=== PATIENT | male | born 1990 | race Caucasian/White ===

== ENCOUNTER 2018-07-18 19:07 | Inpatient (IN) | payer OTHER, SELFPAY ==
[2018-07-18 19:09] VITALS: BP 123/60; PULSE 103; RESP 15; TEMP 39.3; BMI 31.1
--- NOTE | 2018-07-18 19:25 | ED.VISSUMM ---
- ER Visit Summary Date of Service: 07/18/18 Chief Complaint: Fever left arm pain. History of Present Illness: The patient is a 28 M with LEIA woke up with a fever, his left hand is red and he is noticing lymphangitic streaking. Denies any chest pain shortness of breath. Denies cough. No urinary symptoms. No abdominal pain. Physical Examination: He appears in some distress Moist mucous membranes, he has an obvious nasal deformity. He has a deep voice No C-spine tenderness supple neck. Regular rate and rhythm without any obvious murmurs Clear lungs bilaterally speaking in full sentences without any obvious respiratory distress Abdomen soft and nontender no guarding or rebound There is dorsum of the hand erythema and some edema without any obvious abscess. There is lymphangitic streaking up to close to the axilla. His fifth digit shows an auto amputation, he has multiple areas of very dry skin throughout his hand. Alert oriented ?3 with no gross focal deficit Emergency Department Course and Treatment: Patient was started on IV clindamycin, blood cultures were drawn. Patient will need admission for IV antibiotics. At this time there are no signs or symptoms of necrotizing fasciitis or deep abscess. Disposition: Admit to the hospital in guarded condition Impression: Left hand cellulitis with lymphangitic streaking This note was generated with [employer] dictation software. It may contain incorrect words, spelling, and punctuation that were not noted in review of the chart prior to signing ED Disposition - Plan for ED Patient: Chief Complaint: Fever Referrals: Salty Watts DO [Primary Care Provider] -
--- NOTE | 2018-07-18 19:40 | RAD_ITS ---
STUDY: X-RAY - LEFT HAND REASON FOR EXAM: Male, 28 years old. The third digit pain TECHNIQUE: 3 view(s) of the hand. COMPARISON: None. FINDINGS: There is amputation of the distal phalanx of the left fifth finger. There is no evidence of acute fracture or dislocation. There are no significant degenerative changes. There are no radiodense foreign bodies. RAD/Hand Min 3 Views IMPRESSION: Amputation of the distal phalanx of the left fifth finger. No acute fracture or dislocation. Electronically Signed: Juan F Alan, at 20:11 EST Tel , Service support ,
[2018-07-18 19:49] LABS: Basophil# 0.01 X10^3/uL; Basophil% 0.1 % (0-1); Hemoglobin 12.4 g/dl (13.0-16.5); Lymphocyte % 14.9 % (19-41); Mean Corp Hgb Conc 33.5 g/gl (32-36); Mean Corpuscular Hgb 30.7 pg (27.0-32.0); Mean Corpuscular Volume 91.6 fL (80-94); Mean Platelet Vol. 8.7 fl (6.2-12.0); Monocyte# 0.79 X10^3/uL; Monocyte% 6.2 % (0-10); Neutrophil # 10.02 X10^3/uL (2.7-7.7); Neutrophil % 78.7 % (47-70); POSITIVE COUNT NO; POSITIVE DIFFERENTIAL NO; POSITIVE MORPHOLOGY NO; Platelet Count 161 K/mm3 (150-450); RBC Distribution Width CV 13.5 % (11.6-14.6); RBC Distribution Width SD 45.2 fl (35.1-43.9); Red Blood Count 4.04 M/mm3 (4.6-6.2); White Blood Count 12.7 K/mm3 (4.4-11.0)
[2018-07-18 19:54] LABS: Erythrocyte Sedimentation Rate 23 mm/hr (0-15)
[2018-07-18 20:17] LABS: Anion Gap 8 (5-15); BUN 15 mg/dL (7-18); BUN/Creat Ratio 19.1 RATIO (10-20); Calcium,Total 8.5 mg/dL (8.5-10.1); Chloride 100 mmol/L (98-107); Creatinine, Serum 0.79 mg/dL (0.70-1.30); EST Glomerular Filtration Rate 126 mL/min (>60); Est Glom Filt Rate - Afr Amer 152 mL/min (>60); Estimated Creatinine Clearance 113.04 ml/min; Glucose 91 mg/dL (74-106); Lactic Acid 0.9 mmol/L (0.4-2.0); Potassium 4.1 mmol/L (3.5-5.1); Sodium Level 135 mmol/L (136-145)
--- NOTE | 2018-07-18 20:34 | PCM.HP.STD ---
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 His symptoms are more prominent on the last 2 digits of the fingers of his left hand with extension to the entire left upper extremity. Associated with his symptoms is a fever of 104 while at home. Further he reported chills. Patient who is Shane tried ibuprofen and some natural treatment but noticed a progression of his symptoms. At emergency department patient was found to have temperatures of around 103; elevated white count, elevated ESR and elevated CRP. At emergency department patient received clindamycin. X-ray of his left hand was unremarkable. Past Medical History Past Medical History (Chronic Problems): Chronic Problems LEIA syndrome (Chronic) Tobacco abuse (Chronic) Allergies No Known Allergies Allergy (Verified 07/18/18 19:14) Home Medications: Ambulatory Orders Medication Instructions Recorded Natural Herbs 07/18/18 Surgical History: appendectomy, - - To brain aneurysmal clips Lives: Spouse/ Significant Other Smoking Status: Current every day smoker Tobacco Use: Chew Alcohol: Occasional - *Family History Maternal Family History: Family History (Last Updated 07/19/18 @ 00:41 by Titi Brady MD) Brother LEIA syndrome Brother LEIA syndrome Review of Systems Constitutional: Reports: Chills, Fever. Denies: Weight Change HEENT: Denies: Head Aches, Sinus Congestion, Sinus Drainage Cardiovascular: Denies: Chest Pain, Palpitations Respiratory: Denies: Cough, Shortness of breath at rest, Sputum production Gastrointestinal: Denies: Abdominal Pain, Nausea, Vomiting Genitourinary: Denies: Dysuria Musculoskeletal: Reports: Arm Pain - left. Denies: Joint Pain, Joint Tenderness Skin: Reports: Skin Changes - erythema and swelling of left upper extremities. Denies: Rash, Wounds Neurological: Denies: Numbness, Tingling, Focal weakness Psychiatric: Denies: Anxiety, Depression, Homicidal Ideations, Suicidal Ideations Hematologic/ Lymphatic: Denies: Easy Bruising, Easy Bleeding VTE Information - Inpt Only VTE Present on Admission: No VTE Mechan Device Prophylaxis: SCD's, None VTE Pharm Prophylaxis ordered?: No Patient Problems: Active and Suspected Problems Sepsis due to cellulitis (Acute) - Physical Exam General: Alert, Oriented x3, Cooperative HEENT: Atraumatic, PERRLA, EOMI, Normocephalic, - - Eschar on the tip of nose Neck: Supple, No JVD, Negative Carotid Bruits Lungs: Clear to auscultation, Normal air movement Cardiovascular: Regular rate, No murmurs Abdomen: Bowel Sounds Present, Soft, Non Tender Extremities: Capillary Refill Less than 3 Seconds Skin: - - Swelling and redness of entire right upper extremities more pronounced at dorsum of left distal fingers and with lymphagitic streaking at ventral side of left upper extremities. No distal phalangx of left 5th digit but with small nail at same digit. Musculoskeletal: No Tenderness to Palpation of Joints or Extremities Neurological: Cranial nerves II-XII grossly intact Psych/Mental Status: Normal Affect, Appropriate Vital Signs Temp Pulse Resp BP 102.8 F H 103 H 15 123/60 H 07/18/18 19:09 07/18/18 19:09 07/18/18 19:09 07/18/18 19:09 Weight: 79.7 kg Body Mass Index (BMI) 31.1 Laboratory Tests Past 24 Hrs 07/18/18 07/18/18 07/18/18 19:37 19:37 19:37 WBC 12.7 H RBC 4.04 L Hgb 12.4 L Hct 37.0 L MCV 91.6 MCH 30.7 MCHC 33.5 RDW 13.5 RDW Differential 45.2 H Plt Count 161 MPV 8.7 Immature Gran % (Auto) 0.100 Neut % (Auto) 78.7 H Lymph % (Auto) 14.9 L [place] % (Auto) 6.2 Eos % (Auto) 0.0 Baso % (Auto) 0.1 Absolute Neuts (auto) 10.0 H Absolute Lymphs (auto) 1.90 Total Counted Not Reportable ESR 23 H Sodium 135 L Potassium 4.1 Chloride 100 Carbon Dioxide 27.0 Anion Gap 8 BUN 15 Creatinine 0.79 Estim Creat Clear Calc 113.04 Est GFR (MDRD) Af Amer 152 Est GFR (MDRD) Non-Af 126 BUN/Creatinine Ratio 19.1 Glucose 91 Lactic Acid 0.9 Calcium 8.5 C-React Prot Ext Range 16.60 H Assessment/Plan All Active Problems Sepsis due to cellulitis (Acute) The patient is a 28 year old M with a significant history of tobacco abuse; 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 Sepsis secondary to cellulitis of left upper extremities. Patient with Sirs criteria of white counts of more than 12,000 and with fever more than 100.4. Source of infection is left upper extremities. Independent review of x-ray of left did not show any acute pathology. Lactic acid was unremarkable. Received IV clindamycin at emergency department. Because of sepsis patient was transitioned to vancomycin and cefazolin 2 g every 8 hours. Patient received vancomycin loading dose of 2000 mg. Pharmacy to dose vancomycin. Tylenol as needed for fever Morphine and oxycodone as needed for pain. Bowel protocol in the setting of receiving narcotics. Phenergan as needed for nausea NSS IV fluids in the setting of fever. Trend CBC and BMP. Tobacco abuse Patient is a former smoker but now he chews tobacco Counseled Nicotine patch prescribed. DVT prophylaxis Low risk SCD prescribed. Code Visit Inpatient E&M: 75303 Init Hosp L3
[2018-07-18] MEDS: Ondansetron 4 MG/2 ML Vial IV (20:53)
[2018-07-18] MEDS: Morphine 2 MG/ML Syringe IV (20:53)
[2018-07-18 20:58] VITALS: BP 132/75; PULSE 72; RESP 18; TEMP 39.6; O2SAT 95
[2018-07-18 22:09] VITALS: BP 118/54; PULSE 108; RESP 20; TEMP 39.5; O2SAT 97
[2018-07-18] MEDS: oxyCODONE 5 MG Tablet PO (22:37)
[2018-07-18] MEDS: Mag Hydrox/Al Hydrox/Simeth 30 ML UDC PO (22:37)
[2018-07-18] MEDS: Senna/Docusate Sodium 1 Tablet PO (22:38)
[2018-07-18 23:11] VITALS: O2SAT 97
--- NOTE | 2018-07-18 23:31 | NURSING ---
ice packs to axilla & groin, cool cloth to forehead. encouraged po fluids
[2018-07-18] MEDS: Acetaminophen 325 MG Tablet 650 MG PO (23:36)
--- NOTE | 2018-07-18 23:41 | PCM.RX.CS ---
Consult Pharmacy has been consulted to manage selected antiobiotic: Vancomycin Type of Consult: New start Suspected Infection: Skin/Soft tissue Prior Doses of Antibiotics Received/Current Regimen: Medications Vancomycin HCl (Vancomycin) 1,000 mg in 200 mls @ 200 mls/hr IV Q8H SHIV Vancomycin HCl 2,000 mg/ (Sodium Chloride) 540 mls @ 250 mls/hr IV X1 ONE Stop: 07/19/18 00:39 Last Admin: 07/18/18 22:43 Dose: 250 mls/hr Labs: Sodium 135 mmol/L (136-145) L 07/18/18 19:37 Potassium 4.1 mmol/L (3.5-5.1) 07/18/18 19:37 Chloride 100 mmol/L (98-107) 07/18/18 19:37 Carbon Dioxide 27.0 mmol/L (21.0-32.0) 07/18/18 19:37 Anion Gap 8 (5-15) 07/18/18 19:37 BUN 15 mg/dL (7-18) 07/18/18 19:37 Creatinine 0.79 mg/dL (0.70-1.30) 07/18/18 19:37 Est GFR (MDRD) Af Amer 152 mL/min (>60) 07/18/18 19:37 Est GFR (MDRD) Non-Af 126 mL/min (>60) 07/18/18 19:37 BUN/Creatinine Ratio 19.1 RATIO (10-20) 07/18/18 19:37 Glucose 91 mg/dL (74-106) 07/18/18 19:37 Weight used for dosin.9 kg Estimated Creatinine Clearance: 113 Goal Trough: 15-20 mcg/mL Pharmacy Plan for Drug Dosing: Pharmacy Service will continue to monitor and adjust dosing as required. Follow-Up Labs: Trough Vancomycin Labs to be done on [date and time ordered]: 07/19/18 @9519
[2018-07-19] VITALS (13 sets, daily range): BP systolic 96–122; BP diastolic 53–68; PULSE 78–115; RESP 14–20; TEMP 36.8–40.2; O2SAT 97–100
[2018-07-19] MEDS: 0.9% Normal Saline 1,000 ML 75 ML IV (01:20)
[2018-07-19] MEDS: Cefazolin 2 GM in 0.9% Normal Saline 100 ML IV ×2 (01:21→05:57)
[2018-07-19] MEDS: oxyCODONE 5 MG Tablet PO ×2 (03:46→17:23)
[2018-07-19] MEDS: Ibuprofen 400 MG Tablet PO ×3 (04:50→20:46)
[2018-07-19] MEDS: Acetaminophen 325 MG Tablet 650 MG PO ×2 (05:57→19:38)
[2018-07-19 06:02] LABS: Absolute Lymphocyte Count 1.21 X10^3/ul (0.83-4.51); Absolute Neutrophil Count 8.4 X10^3/uL (2.0-7.7); Basophil# 0.01 X10^3/uL; Basophil% 0.1 % (0-1); Hematocrit 32.5 % (40-54); Hemoglobin 10.9 g/dl (13.0-16.5); Lymphocyte # 1.21 X10^3/ul (4.0); Lymphocyte % 12.1 % (19-41); Mean Corp Hgb Conc 33.5 g/gl (32-36); Mean Corpuscular Hgb 30.9 pg (27.0-32.0); Mean Corpuscular Volume 92.1 fL (80-94); Mean Platelet Vol. 8.8 fl (6.2-12.0); Monocyte# 0.35 X10^3/uL; Monocyte% 3.5 % (0-10); Neutrophil # 8.42 X10^3/uL (2.7-7.7); Neutrophil % 84.2 % (47-70); Platelet Count 149 K/mm3 (150-450); RBC Distribution Width CV 13.6 % (11.6-14.6); RBC Distribution Width SD 45.3 fl (35.1-43.9); Red Blood Count 3.53 M/mm3 (4.6-6.2)
[2018-07-19 06:04] LABS: POSITIVE COUNT NO; POSITIVE DIFFERENTIAL NO; POSITIVE MORPHOLOGY NO
[2018-07-19 06:31] LABS: Anion Gap 11 (5-15); BUN 10 mg/dL (7-18); BUN/Creat Ratio 12.4 RATIO (10-20); Calcium,Total 7.8 mg/dL (8.5-10.1); Chloride 99 mmol/L (98-107); Creatinine, Serum 0.81 mg/dL (0.70-1.30); EST Glomerular Filtration Rate 122 mL/min (>60); Est Glom Filt Rate - Afr Amer 148 mL/min (>60); Estimated Creatinine Clearance 110.25 ml/min; Glucose 125 mg/dL (74-106); Potassium 3.4 mmol/L (3.5-5.1); Sodium Level 134 mmol/L (136-145)
[2018-07-19] MEDS: Vancomycin IV 1,000 MG/200 ML BAG 200 MG IV (06:53)
--- NOTE | 2018-07-19 09:05 | PN_ITS ---
Patient Problems: Active and Suspected Problems Sepsis due to cellulitis (Acute) Subjective: The patient mother says patient has LEIA syndrome and as a result patient was short stature then gained weight and height after age of 19. He also had brain aneurysm subsequent 2 aneurysm clips. He was admitted with left upper extremity swelling, pain, proximal extension from medial 2 digits of left hand and left axillary lymphadenopathy and fever. Vitals/I&O's: Vital Signs Temp Pulse Resp BP Pulse Ox 98.3 F 83 14 96/53 L 97 07/19/18 07:49 07/19/18 07:49 07/19/18 08:43 07/19/18 07:49 07/19/18 07:49 Oxygen Delivery Method Room Air Weight: 169 lb 8.568 oz Body Mass Index (BMI) 30.0 Intake and Output for Last 24 Hours 07/17/18 07/18/18 07/19/18 23:59 23:59 23:59 Intake Total 200 / 200 3885 / 3885 Output Total 680 / 680 1800 / 1800 Balance -480 / -480 2084 / 2084 General: Alert, Oriented x3, Cooperative HEENT: Atraumatic, PERRLA, EOMI, Normocephalic Neck: Supple, No JVD, Negative Carotid Bruits Lungs: Clear to auscultation, Normal air movement, No rhonchi, No wheeze Cardiovascular: Regular rate, No murmurs Abdomen: Bowel Sounds Present, Soft, Non Tender Extremities: Capillary Refill Less than 3 Seconds, Edema - Left upper extremity edema., Tenderness - Of left upper extremity along the medial aspect. Skin: Rash Present - Erythematous rash present over left upper extremity involving left axilla, gradually improving Musculoskeletal: Tenderness Lymphatic: - - Left axillary lymphadenopathy Neurological: Cranial nerves II-XII grossly intact, Deep Tendon Reflexes 2+/4 and Symmetrical, Neuro grossly intact Psych/Mental Status: Normal Affect, Appropriate Laboratory Results 07/18/18 19:37: WBC 12.7 H, RBC 4.04 L, Hgb 12.4 L, Hct 37.0 L, MCV 91.6, MCH 30.7, MCHC 33.5, RDW 13.5, RDW Differential 45.2 H, Plt Count 161, MPV 8.7, Immature Gran % (Auto) 0.100, Neut % (Auto) 78.7 H, Lymph % (Auto) 14.9 L, [place] % (Auto) 6.2, Eos % (Auto) 0.0, Baso % (Auto) 0.1, Absolute Neuts (auto) 10.0 H, Absolute Lymphs (auto) 1.90, Total Counted Not Reportable, ESR 23 H 07/18/18 19:37: Sodium 135 L, Potassium 4.1, Chloride 100, Carbon Dioxide 27.0, Anion Gap 8, BUN 15, Creatinine 0.79, Estim Creat Clear Calc 113.04, Est GFR (MDRD) Af Amer 152, Est GFR (MDRD) Non-Af 126, BUN/Creatinine Ratio 19.1, Glucose 91, Calcium 8.5, C-React Prot Ext Range 16.60 H 07/18/18 19:37: Lactic Acid 0.9 07/19/18 05:25: WBC 10.0, RBC 3.53 L, Hgb 10.9 L, Hct 32.5 L, MCV 92.1, MCH 30.9, MCHC 33.5, RDW 13.6, RDW Differential 45.3 H, Plt Count 149 L, MPV 8.8, Immature Gran % (Auto) 0.100, Neut % (Auto) 84.2 H, Lymph % (Auto) 12.1 L, [place] % (Auto) 3.5, Eos % (Auto) 0.0, Baso % (Auto) 0.1, Absolute Neuts (auto) 8.4 H, Absolute Lymphs (auto) 1.21, Total Counted Not Reportable 07/19/18 05:25: Sodium 134 L, Potassium 3.4 L, Chloride 99, Carbon Dioxide 24.0, Anion Gap 11, BUN 10, Creatinine 0.81, Estim Creat Clear Calc 110.25, Est GFR (MDRD) Af Amer 148, Est GFR (MDRD) Non-Af 122, BUN/Creatinine Ratio 12.4, Glucose 125 H, Calcium 7.8 L Current Medications Acetaminophen (Tylenol) 650 mg PO Q6H PRN PRN PRN Reason: pain/fever Last Admin: 07/19/18 05:57 Dose: 650 mg Al Hydroxide/Mg Hydroxide (Mylanta Ii) 30 ml PO Q6H PRN PRN PRN Reason: Gastric burning Last Admin: 07/18/18 22:37 Dose: 30 ml Dextrose (D50w Syringe) 0 gm IV X1 PRN; Protocol PRN Reason: Hypoglycemia Glucagon () 1 mg IM .X1 PRN PRN Reason: Hypoglycemia Cefazolin Sodium 2 gm/ Sodium (Chloride) 110 mls @ 150 mls/hr IV Q8 [facility] Last Admin: 07/19/18 05:57 Dose: 150 mls/hr Vancomycin IV Pharmacy to Dose (2,000 ea/ Sodium Chloride) 500 mls @ 250 mls/hr IV Q12 PRN; Protocol Vancomycin HCl (Vancomycin) 1,000 mg in 200 mls @ 200 mls/hr IV Q8H [facility] Last Admin: 07/19/18 06:53 Dose: 200 mls/hr Sodium Chloride () 1,000 mls @ 100 mls/hr IV .Q10H [facility] Stop: 07/19/18 18:14 Ibuprofen (Motrin) 400 mg PO Q6H PRN PRN PRN Reason: Mild Pain (1-310)/TEMP Magnesium Hydroxide (Milk Of Magnesia) 30 ml PO DAILY PRN PRN PRN Reason: Constipation Morphine Sulfate () 1 - 2 mg IV Q4H PRN PRN PRN Reason: Moderate Pain (pain scale 4-5) Nicotine (Nicoderm Cq (Pbkc)) 21 mg TRANSDERM. DAILY [facility] Last Admin: 07/18/18 22:38 Dose: 21 mg Nutritional Formula (Lactose Free) (Ensure Enlive) 120 ml PO 4X/DAY [facility] Ondansetron HCl (Zofran) 4 mg IV Q8H PRN PRN PRN Reason: NAUSEA Oxycodone HCl (Oxyir) 5 mg PO Q4H PRN PRN PRN Reason: Moderate Pain (pain scale 4-5) Last Admin: 07/19/18 03:46 Dose: 5 mg Promethazine HCl (Phenergan) 12.5 mg IV Q6H PRN PRN PRN Reason: NAUSEA/VOMITING Senna/Docusate Sodium (Senokot-S, Elena-Colace) 1 tablet PO BID [facility] Last Admin: 07/18/18 22:38 Dose: 1 tablet Sodium Chloride () 5 - 30 ml IV UD PRN PRN Reason: SALINE FLUSH Medical Necessity - Tobacco Use Smoking Status: Current every day smoker Tobacco Use: Chew Assessment/Plan All Active Problems Sepsis due to cellulitis (Acute) The patient is a 28 year old M with a significant history of tobacco abuse; 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 1. SIRS with sepsis secondary to left upper extremity cellulitis with left axillary lymphadenopathy: Left axillary lymphadenopathy is improving. Patient is on IV Unasyn. Initially was treated with IV vancomycin and clindamycin. Blood culture negative for 1 day. MRSA nasal screen negative. Her mother further said he has acral cyanosis or tip of ears, nose getting or probable old cold; probably may have Reynaud's phenomena. 2. PAD of lower extremities: As per mother he has some peripheral artery disease of lower extremities on arterial Doppler result is not available. Patient did not had angiogram or stenting. 3. Tobacco use: Patient was ex-smoker but now uses chewing tobacco. 4. DVT prophylaxis: Low risk. Early ambulation encouraged Clinical Impression(s) from Imaging Studies Hand X-Ray 07/18/18 19:40 IMPRESSION: Amputation of the distal phalanx of the left fifth finger. No acute fracture or dislocation. Laboratory Results 07/19/18 05:25: WBC 10.0, RBC 3.53 L, Hgb 10.9 L, Hct 32.5 L, MCV 92.1, MCH 30.9, MCHC 33.5, RDW 13.6, RDW Differential 45.3 H, Plt Count 149 L, MPV 8.8, Immature Gran % (Auto) 0.100, Neut % (Auto) 84.2 H, Lymph % (Auto) 12.1 L, [place] % (Auto) 3.5, Eos % (Auto) 0.0, Baso % (Auto) 0.1, Absolute Neuts (auto) 8.4 H, Absolute Lymphs (auto) 1.21, Total Counted Not Reportable 07/19/18 05:25: Sodium 134 L, Potassium 3.4 L, Chloride 99, Carbon Dioxide 24.0, Anion Gap 11, BUN 10, Creatinine 0.81, Estim Creat Clear Calc 110.25, Est GFR (MDRD) Af Amer 148, Est GFR (MDRD) Non-Af 122, BUN/Creatinine Ratio 12.4, Glucose 125 H, Calcium 7.8 L 07/19/18 09:00: MRSA (PCR) Negative 07/19/18 11:43: POC Glucose 97 Code Visit Inpatient E&M: 19556 Subs Hosp L2
[2018-07-19] MEDS: Senna/Docusate Sodium 1 Tablet PO ×2 (09:18→22:18)
[2018-07-19 11:50] LABS: M R Staph aureus DNA By PCR Negative (Negative); Probe Check PASS; Specimen Processing Control PASS
[2018-07-19 12:01] LABS: Bedside Glucose 97 mg/dL (70-110)
--- NOTE | 2018-07-19 12:10 | CASEMGMT ---
FRED MARTINEZ INITIAL ASSESSMENT D/C PLAN: Home Face to Face with patient for initial transition planning/care coordination assessment. FRED MARTINEZ introduced self and role at [facility]. Pt resting in bed, awake/alert/oriented. Several family members in room. Pt agreeable to assessment and answering questions with visitors present. Care providers, pharmacy, and demographics verified. PCP: Salty Watts Preferred Pharmacy: [facility], [facility] Retail on day of discharge only. Insurance: [employer] Aid Prescription Benefit: No Living Will/HPOA: Does not have either. [facility] is interested in information and talking to . Given AD information packet and Dung notified. LNOK: Living Arrangements: Lives with and child. Transportation: Hires drivers. DME: Denies using any DME and denies needs. HHC/SNF: Denies needs and no needs identified. Pt wishes to return home. [facility] does not have a phone but if someone would need to contact him, they can reach him on his work number, which is Hardeep Rawls's number: [phone]. [facility] it is okay to leave message at this number for him to return call. CM to follow for any further discharge planning needs that may arise. Lexi BOWMAN RN, CM
[2018-07-19] MEDS: 0.9% Normal Saline 1,000 ML 100 ML IV (15:01)
--- NOTE | 2018-07-19 15:09 | CHAPLAIN ---
Type of Pastoral Visit _x__ Initial Visit ___ Follow-up Visit ___ On-call Visit ___ General Patient Visit ___ Spiritual Assessment ___ Family Conference ___ Bereavement ___ Rapid Response ___ Code Blue ___ Other (describe below) Pastoral Care Referral From _x__ Patient ___ Family ___ Nurse ___ Physician ___ System Development Engineer ___ Diamond Picker ___ Other (describe below) Sacrament/Intervention _x__ Active listening ___ Anointing ___ Presybeterian ___ Bereavement ___ Communion ___ Cherrie exploration ___ ___ Life review _x__ Prayer ___ Reconciliation ___ Sacrament of Sick _x__ Supportive presence ___ Wedding ___ Other (describe below) Pastoral Comments there were a few family members with patient; pt spoke of his illness; pt said that family is his support; pt accepted prayer
--- NOTE | 2018-07-19 15:33 | CASEMGMT ---
Addendum entered by Anahy Webber 07/19/18 15:41: SW provided pt with advanced directives documents. Original Note: Social Work Note SW received referral for Advanced Directives. SW met with pt. Pt has guest present. Pt gave this worker permission to speak to him in front of guest. SW explained advanced directives to pt. Pt states that he wishes to review documents and complete the documents at a later time. SW explained that pt may take the documents home and can complete them and they will need notarized then. Pt states understanding. SW provided pt with executive secretary social welfare information card in the event pt wants assistance in completing documents once he discharges from hospital. Anahy Webber TAG AND LABEL CUTTER, CUSTOMER COMPLAINT SERVICE SUPERVISOR
[2018-07-19 17:11] LABS: Bedside Glucose 76 mg/dL (70-110)
[2018-07-19] MEDS: Ondansetron 4 MG/2 ML Vial IV (19:46)
[2018-07-19 22:30] LABS: Bedside Glucose 109 mg/dL (70-110)
[2018-07-19 23:53] LABS: Vancomycin, Trough Level 3.8 ug/mL (5.0-15.0)
[2018-07-20] VITALS (7 sets, daily range): BP systolic 99–115; BP diastolic 56–64; PULSE 80–96; RESP 16–18; TEMP 37.2–39; O2SAT 96–99
[2018-07-20] MEDS: Acetaminophen 325 MG Tablet 650 MG PO ×2 (01:31→20:31)
[2018-07-20] MEDS: Ibuprofen 400 MG Tablet PO (05:49)
[2018-07-20 06:51] LABS: Bedside Glucose 109 mg/dL (70-110)
[2018-07-20 07:08] LABS: Anion Gap 6 (5-15); BUN 8 mg/dL (7-18); BUN/Creat Ratio 11.1 RATIO (10-20); Calcium,Total 8.1 mg/dL (8.5-10.1); Chloride 105 mmol/L (98-107); Creatinine, Serum 0.72 mg/dL (0.70-1.30); EST Glomerular Filtration Rate 139 mL/min (>60); Est Glom Filt Rate - Afr Amer 168 mL/min (>60); Estimated Creatinine Clearance 124.03 ml/min; Glucose 84 mg/dL (74-106); Sodium Level 138 mmol/L (136-145)
--- NOTE | 2018-07-20 09:23 | CT_ITS ---
STUDY: CT SCAN UPPER EXTREMITY LEFT REASON FOR EXAM: Male, 28 years old. Swelling and redness of the left arm. RADIATION DOSAGE (If Supplied By Facility): CTDIvol = ( 25.04 ) mGy, DLP = ( 2033.89 ) mGycm. Individualized dose optimization techniques were used for this CT.? TECHNIQUE: Multiple axial tomographic images of the left upper extremity to the level of the digits was obtained following IV contrast administration. Coronal and sagittal reconstruction was obtained as well. COMPARISON: None. FINDINGS: There is evidence of skin thickening with increased markings in the underlying subcutaneous tissues along the medial aspect of the left arm. This extends to the region of the elbow joint. There is also evidence of diffuse skin thickening and subcutaneous edema along the medial aspect of the forearm. No focal abscess is seen. The patient is status post amputation of the distal phalanx of the left finger. CT/Extremity Upper WITH Contrast IMPRESSION: Skin thickening and subcutaneous edema overlying the medial aspect of the left upper extremity as described. No focal fluid collection or abscess is seen. Electronically Signed: Cruzito Nathan MD at 11:09 EST Tel [phone], Service support ,
[2018-07-20 09:39] LABS: Absolute Lymphocyte Count 2.07 X10^3/ul (0.83-4.51); Absolute Neutrophil Count 6.7 X10^3/uL (2.0-7.7); Basophil# 0.01 X10^3/uL; Basophil% 0.1 % (0-1); Hematocrit 36.1 % (40-54); Hemoglobin 11.7 g/dl (13.0-16.5); Lymphocyte # 2.07 X10^3/ul (4.0); Lymphocyte % 21.3 % (19-41); Mean Corp Hgb Conc 32.4 g/gl (32-36); Mean Corpuscular Hgb 30.9 pg (27.0-32.0); Mean Corpuscular Volume 95.3 fL (80-94); Mean Platelet Vol. 9.1 fl (6.2-12.0); Monocyte# 0.91 X10^3/uL; Monocyte% 9.4 % (0-10); Neutrophil % 69.1 % (47-70); POSITIVE COUNT NO; POSITIVE DIFFERENTIAL NO; POSITIVE MORPHOLOGY NO; Platelet Count 139 K/mm3 (150-450); RBC Distribution Width CV 14.3 % (11.6-14.6); Red Blood Count 3.79 M/mm3 (4.6-6.2); White Blood Count 9.7 K/mm3 (4.4-11.0)
--- NOTE | 2018-07-20 09:58 | NURSING ---
Dr Monroe asked this nurse to see patient for redness to the left hand and left arm and for pus to the middle finger. there is no current drainage noted. no open areas to culture. patient states he always has swelling to the hand and will often times not be able to move his fingers well d/t the edema. pt denies injuring his hand. pt states that the redness and edema have greatly improved already. pt does have scattered scabbed areas to his face, nose, arms, and hands. family present at bedside. pt getting ready to go down for a CT scan of the left hand.
[2018-07-20] MEDS: oxyCODONE 5 MG Tablet PO (10:59)
[2018-07-20 11:00] LABS: Bedside Glucose 118 mg/dL (70-110)
[2018-07-20] MEDS: 0.9% NaCl Peripheral Flush Adult/Peds IV (11:02)
--- NOTE | 2018-07-20 14:46 | PN_ITS ---
Patient Problems: Active and Suspected Problems Sepsis due to cellulitis (Acute) Subjective: Patient had fever yesterday 103.1 Fahrenheit, 102.2 Fahrenheit but afebrile in the morning. Associated tachycardia. 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 Vitals/I&O's: Vital Signs Temp Pulse Resp BP Pulse Ox 98.9 F 80 16 99/56 L 98 07/20/18 11:47 07/20/18 11:47 07/20/18 11:47 07/20/18 05:47 07/20/18 11:47 Oxygen Delivery Method Room Air Weight: 169 lb 8.568 oz Body Mass Index (BMI) 30.0 Intake and Output for Last 24 Hours 07/18/18 07/19/18 07/20/18 23:59 23:59 23:59 Intake Total 200 / 200 7214 / 7214 590 / 590 Output Total 680 / 680 4980 / 4980 550 / 550 Balance -480 / -480 2234 / 2234 40 / 40 General: Alert, Oriented x3, Cooperative HEENT: Atraumatic, PERRLA, EOMI, Normocephalic Neck: Supple, No JVD, Negative Carotid Bruits Lungs: Clear to auscultation, Normal air movement Cardiovascular: Regular rate, No murmurs Abdomen: Bowel Sounds Present, Soft, Non Tender Extremities: No edema, Capillary Refill Less than 3 Seconds Skin: Rash Present - Erythematous rash over left upper extremity and axilla. Musculoskeletal: No Tenderness to Palpation of Joints or Extremities, Tenderness - Of left upper extremity along the medial aspect with associated induration and swelling Lymphatic: - - Left axillary lymphadenopathy Neurological: Cranial nerves II-XII grossly intact, Deep Tendon Reflexes 2+/4 and Symmetrical, Neuro grossly intact, Motor Exam 5/5 strength throughout Psych/Mental Status: Normal Affect, Appropriate Laboratory Results 07/19/18 17:00: POC Glucose 76 07/19/18 22:16: POC Glucose 109 07/19/18 22:30: Vancomycin Trough 3.8 L 07/20/18 05:20: Sodium 138, Potassium 4.0, Chloride 105, Carbon Dioxide 27.0, Anion Gap 6, BUN 8, Creatinine 0.72, Estim Creat Clear Calc 124.03, Est GFR (MDRD) Af Amer 168, Est GFR (MDRD) Non-Af 139, BUN/Creatinine Ratio 11.1, Glucose 84, Calcium 8.1 L 07/20/18 06:30: WBC 9.7, RBC 3.79 L, Hgb 11.7 L, Hct 36.1 L, MCV 95.3 H, MCH 30.9, MCHC 32.4, RDW 14.3, RDW Differential 49.0 H, Plt Count 139 L, MPV 9.1, Immature Gran % (Auto) 0.100, Neut % (Auto) 69.1, Lymph % (Auto) 21.3, Hughes % (Auto) 9.4, Eos % (Auto) 0.0, Baso % (Auto) 0.1, Absolute Neuts (auto) 6.7, Absolute Lymphs (auto) 2.07, Total Counted Not Reportable 07/20/18 06:46: POC Glucose 109 07/20/18 10:54: POC Glucose 118 H Current Medications Acetaminophen (Tylenol) 650 mg PO Q6H PRN PRN PRN Reason: pain/fever Last Admin: 07/20/18 01:31 Dose: 650 mg Al Hydroxide/Mg Hydroxide (Mylanta Ii) 30 ml PO Q6H PRN PRN PRN Reason: Gastric burning Last Admin: 07/18/18 22:37 Dose: 30 ml Dextrose (D50w Syringe) 0 gm IV X1 PRN; Protocol PRN Reason: Hypoglycemia Glucagon () 1 mg IM .X1 PRN PRN Reason: Hypoglycemia Piperacillin Sod/Tazobactam Sod (Zosyn) 3.375 gm in 50 mls @ 12.5 mls/hr IV Q8 SHIV Ibuprofen (Motrin) 400 mg PO Q6H PRN PRN PRN Reason: Mild Pain (1-3/10)/TEMP Last Admin: 07/20/18 05:49 Dose: 400 mg Magnesium Hydroxide (Milk Of Magnesia) 30 ml PO DAILY PRN PRN PRN Reason: Constipation Morphine Sulfate () 1 - 2 mg IV Q4H PRN PRN PRN Reason: Moderate Pain (pain scale 4-5) Nicotine (Nicoderm Cq (Pbkc)) 21 mg TRANSDERM. DAILY SHIV Last Admin: 07/20/18 10:42 Dose: 21 mg Nutritional Formula (Lactose Free) (Ensure Enlive) 120 ml PO 4X/DAY SHIV Last Admin: 07/20/18 10:42 Dose: 120 ml Ondansetron HCl (Zofran) 4 mg IV Q8H PRN PRN PRN Reason: NAUSEA Last Admin: 07/19/18 19:46 Dose: 4 mg Oxycodone HCl (Oxyir) 5 mg PO Q4H PRN PRN PRN Reason: Moderate Pain (pain scale 4-5) Last Admin: 07/20/18 10:59 Dose: 5 mg Promethazine HCl (Phenergan) 12.5 mg IV Q6H PRN PRN PRN Reason: NAUSEA/VOMITING Senna/Docusate Sodium (Senokot-S, Elena-Colace) 1 tablet PO BID SHIV Last Admin: 07/20/18 10:42 Dose: 1 tablet Sodium Chloride () 5 - 30 ml IV UD PRN PRN Reason: SALINE FLUSH Last Admin: 07/20/18 11:02 Dose: 10 ml Medical Necessity - Tobacco Use Smoking Status: Current every day smoker Tobacco Use: Chew Assessment/Plan All Active Problems Sepsis due to cellulitis (Acute) The patient is a 28 year old M with a significant history of tobacco abuse; 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 1. SIRS with sepsis secondary to left upper extremity cellulitis with left axillary lymphadenopathy: Left axillary lymphadenopathy is improving. Patient antibiotic was broadened to Zosyn from Unasyn. Initially was treated with IV vancomycin and clindamycin. Blood culture negative for 1 day. MRSA nasal screen negative. Her mother further said he has acral cyanosis or tip of ears, nose getting or probable old cold; probably may have Reynaud's phenomena. With continued swelling, edema, tenderness and fever left upper extremity CT with contrast was done which shows no focal fluid collection or abscess but skin thickening and subcutaneous edema over the medial aspect of left upper extremity. Discussed with the plastic surgery Dr. Mishra and requested consult 2. PAD of lower extremities: As per mother he has some peripheral artery disease of lower extremities on arterial Doppler result is not available. Patient did not had angiogram or stenting.Patient has amputation of distal phalanx of left fifth finger. 3. Tobacco use: Patient was ex-smoker but now uses chewing tobacco. 4. DVT prophylaxis: Low risk. Early ambulation encouraged Clinical Impression(s) from Imaging Studies Hand X-Ray 07/18/18 19:40 IMPRESSION: Amputation of the distal phalanx of the left fifth finger. No acute fracture or dislocation. Laboratory Results 07/19/18 17:00: POC Glucose 76 07/19/18 22:16: POC Glucose 109 07/19/18 22:30: Vancomycin Trough 3.8 L 07/20/18 05:20: Sodium 138, Potassium 4.0, Chloride 105, Carbon Dioxide 27.0, Anion Gap 6, BUN 8, Creatinine 0.72, Estim Creat Clear Calc 124.03, Est GFR (MDRD) Af Amer 168, Est GFR (MDRD) Non-Af 139, BUN/Creatinine Ratio 11.1, Glucose 84, Calcium 8.1 L 07/20/18 06:30: WBC 9.7, RBC 3.79 L, Hgb 11.7 L, Hct 36.1 L, MCV 95.3 H, MCH 30.9, MCHC 32.4, RDW 14.3, RDW Differential 49.0 H, Plt Count 139 L, MPV 9.1, Immature Gran % (Auto) 0.100, Neut % (Auto) 69.1, Lymph % (Auto) 21.3, Hughes % (Auto) 9.4, Eos % (Auto) 0.0, Baso % (Auto) 0.1, Absolute Neuts (auto) 6.7, Absolute Lymphs (auto) 2.07, Total Counted Not Reportable 07/20/18 06:46: POC Glucose 109 07/20/18 10:54: POC Glucose 118 H Clinical Impression(s) from Imaging Studies Hand X-Ray 07/18/18 19:40 IMPRESSION: Amputation of the distal phalanx of the left fifth finger. No acute fracture or dislocation. Upper Extremity CT 07/20/18 09:23 IMPRESSION: Skin thickening and subcutaneous edema overlying the medial aspect of the left upper extremity as described. No focal fluid collection or abscess is seen. Code Visit Inpatient E&M: 00591 Subs Hosp L3
[2018-07-20] MEDS: Piperacil/Tazobactam 3.375 GM/50 ML ML IV ×2 (16:29→21:44)
[2018-07-20 17:05] LABS: Bedside Glucose 124 mg/dL (70-110)
--- NOTE | 2018-07-20 17:43 | PCM.CONS.GEN ---
Reason for Consult Date of Consultation: 07/20/18 Reason for Consultation: Cellulitis left upper extremity. REFERRING PHYSICIAN: Dr. Monroe. SUPERVISOR/PORT DIRECTOR: Dr. Mishra. History of Present Illness: The patient is a 28 year old M with a significant history of LEIA syndrome was admitted two days ago for increasing pain and redness and swelling left upper extremity. He has had fevers since admission. Today he has been afebrile. His WBC has improved since admission from 12.7 down to 9.7 since being on IV antibiotics. He was initially given Cleocin, and then admitted on Vancomycin and Ancef. This was changed to Unasyn the next day and currently he is on Zosyn. He states when the weather gets cold, he sometimes will get increased redness and swelling that usually improves with time and antibiotics. He denies any trauma to his hands. He does have a distal tip amputation to his left small finger. CT was done which showed skin thickening and subcutaneous edema overlying the medial aspect of the left upper extremity as described. No focal fluid collection or abscess is seen. I was asked to evaluate this patient for surgical options for treatment. Past Medical History Past Medical History (Chronic Problems): Chronic Problems LEIA syndrome (Chronic) Tobacco abuse (Chronic) Allergies No Known Allergies Allergy (Verified 07/18/18 19:14) Current Medications Acetaminophen (Tylenol) 650 mg PO Q6H PRN PRN PRN Reason: pain/fever Last Admin: 07/20/18 01:31 Dose: 650 mg Al Hydroxide/Mg Hydroxide (Mylanta Ii) 30 ml PO Q6H PRN PRN PRN Reason: Gastric burning Last Admin: 07/18/18 22:37 Dose: 30 ml Dextrose (D50w Syringe) 0 gm IV X1 PRN; Protocol PRN Reason: Hypoglycemia Glucagon () 1 mg IM .X1 PRN PRN Reason: Hypoglycemia Piperacillin Sod/Tazobactam Sod (Zosyn) 3.375 gm in 50 mls @ 12.5 mls/hr IV Q8 SHIV Last Admin: 07/20/18 16:29 Dose: 12.5 mls/hr Ibuprofen (Motrin) 400 mg PO Q6H PRN PRN PRN Reason: Mild Pain (1-3/10)/TEMP Last Admin: 07/20/18 05:49 Dose: 400 mg Magnesium Hydroxide (Milk Of Magnesia) 30 ml PO DAILY PRN PRN PRN Reason: Constipation Morphine Sulfate () 1 - 2 mg IV Q4H PRN PRN PRN Reason: Moderate Pain (pain scale 4-5) Nicotine (Nicoderm Cq (Pbkc)) 21 mg TRANSDERM. DAILY [facility] Last Admin: 07/20/18 10:42 Dose: 21 mg Nutritional Formula (Lactose Free) (Ensure Enlive) 120 ml PO 4X/DAY [facility] Last Admin: 07/20/18 16:29 Dose: 120 ml Ondansetron HCl (Zofran) 4 mg IV Q8H PRN PRN PRN Reason: NAUSEA Last Admin: 07/19/18 19:46 Dose: 4 mg Oxycodone HCl (Oxyir) 5 mg PO Q4H PRN PRN PRN Reason: Moderate Pain (pain scale 4-5) Last Admin: 07/20/18 10:59 Dose: 5 mg Promethazine HCl (Phenergan) 12.5 mg IV Q6H PRN PRN PRN Reason: NAUSEA/VOMITING Senna/Docusate Sodium (Senokot-S, Elena-Colace) 1 tablet PO BID [facility] Last Admin: 07/20/18 10:42 Dose: 1 tablet Sodium Chloride () 5 - 30 ml IV UD PRN PRN Reason: SALINE FLUSH Last Admin: 07/20/18 11:02 Dose: 10 ml Home Medications: Ambulatory Orders Medication Instructions Recorded Natural Herbs 07/18/18 Surgical History: appendectomy, - - To brain aneurysmal clips Lives: Spouse/ Significant Other Smoking Status: Current every day smoker Tobacco Use: Chew Alcohol: Occasional - *Family History Maternal Family History: Family History (Last Updated 07/19/18 @ 00:41 by Titi Brady MD) Brother LEIA syndrome Brother LEIA syndrome Review of Systems Comment: Constitutional: Reports: Chills, Fever. Denies: Weight Change. HEENT: Denies: Head Aches, Sinus Congestion, Sinus Drainage. Cardiovascular: Denies: Chest Pain, Palpitations. Respiratory: Denies: Cough, Shortness of breath at rest, Sputum production. Gastrointestinal: Denies: Abdominal Pain, Nausea, Vomiting. Genitourinary: Denies: Dysuria. Musculoskeletal: Reports: Arm Pain - left. Denies: Joint Pain, Joint Tenderness. Skin: Reports: Skin Changes - erythema and swelling of left upper extremities. Denies: Rash, Wounds. Neurological: Denies: Numbness, Tingling, Focal weakness. Psychiatric: Denies: Anxiety, Depression, Homicidal Ideations, Suicidal Ideations. Hematologic/ Lymphatic: Denies: Easy Bruising, Easy Bleeding - Physical Exam General: Alert, Oriented x3. HEENT: PERRLA, EOMI. Has dried eschar on the tip of nose. Neck: Supple, Nontender. No cervical adenopathy. Lungs: Clear to auscultation. Cardiovascular: Regular rate and rhythm. Abdomen: Soft, Nondistended. Extremities: Capillary Refill Less than 3 Seconds. Has scattered areas of redness and swelling on his left hand and forearm. He states there was redness up to axilla on admission which has improved. His arm is nontender. No axillary adenopathy. There is an area of redness and tenderness on proximal forearm. The dorsum of the hand is mildly swollen with some redness. Some tenderness. Small finger shows tip amputation. There is some mild blisters on his fingers. 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 He can make a fist. Opposition is intact. Minimal tenderness with flexion and extension probably from swelling. No clinical evidence of tenosynovitis. Radial pulses are palpable. Neurological: Cranial nerves II-XII grossly intact Psych/Mental Status: Normal Affect, Appropriate Vital Signs Temp Pulse Resp BP Pulse Ox 98.9 F 80 16 99/56 L 98 07/20/18 11:47 07/20/18 11:47 07/20/18 11:47 07/20/18 05:47 07/20/18 11:47 Oxygen Delivery Method Room Air Weight: 169 lb 8.568 oz Body Mass Index (BMI) 30.0 Intake and Output for Last 24 Hours 07/18/18 07/19/18 07/20/18 23:59 23:59 23:59 Intake Total 200 / 200 7214 / 7214 590 / 590 Output Total 680 / 680 4980 / 4980 550 / 550 Balance -480 / -480 2234 / 2234 40 / 40 Laboratory Tests Past 24 Hrs 07/19/18 07/20/18 07/20/18 22:30 05:20 06:30 WBC 9.7 RBC 3.79 L Hgb 11.7 L Hct 36.1 L MCV 95.3 H MCH 30.9 MCHC 32.4 RDW 14.3 RDW Differential 49.0 H Plt Count 139 L MPV 9.1 Immature Gran % (Auto) 0.100 Neut % (Auto) 69.1 Lymph % (Auto) 21.3 Ida % (Auto) 9.4 Eos % (Auto) 0.0 Baso % (Auto) 0.1 Absolute Neuts (auto) 6.7 Absolute Lymphs (auto) 2.07 Total Counted Not Reportable Sodium 138 Potassium 4.0 Chloride 105 Carbon Dioxide 27.0 Anion Gap 6 BUN 8 Creatinine 0.72 Estim Creat Clear Calc 124.03 Est GFR (MDRD) Af Amer 168 Est GFR (MDRD) Non-Af 139 BUN/Creatinine Ratio 11.1 Glucose 84 Calcium 8.1 L Vancomycin Trough 3.8 L POC Glucose 07/20/18 07/20/18 07/20/18 16:42 10:54 06:46 POC Glucose 124 H 118 H 109 07/19/18 22:16 POC Glucose 109 Diagnostic Data Hand X-Ray 07/18/18 19:40 IMPRESSION: Amputation of the distal phalanx of the left fifth finger. No acute fracture or dislocation. Electronically Signed: Juan F Alan, at 20:11 EST Tel , Service support , Upper Extremity CT 07/20/18 09:23 IMPRESSION: Skin thickening and subcutaneous edema overlying the medial aspect of the left upper extremity as described. No focal fluid collection or abscess is seen. Electronically Signed: Cruzito Nathan MD at 11:09 EST Tel [phone], Service support , Assessment/Plan All Active Problems Sepsis due to cellulitis (Acute) 1. Cellulitis left hand and extending to forearm and arm, slowly resolving. 2. LEIA syndrome. 3. Smoker. Continue IV antibiotics with Zosyn. Improvement has been made with the IV antibiotics and elevation. Redness has improved according to the patient and the nurses. His WBC has normalized. Discussed with the patient and his family that as long as improvement continues, we can continue to observe. Can then send home on oral antibiotics and followup in my office in a week. However if improvement slows down or worsens or an area of demarcation develops, then operative intervention would be necessary with incision and drainage and excisional debridement. Would leave the wound open and proceed with daily dressing changes with Silver dressings. Tissue would be sent to Pathology and to Microbiology for culture. A positive culture may necessitate antibiotic modification. I discussed with the Hospitalist that if surgery becomes necessary over the next few days, I will be out of town visiting family over the holiday. The patient would need to be transferred for further evaluation and treatment for surgery at that point. Postop he can followup with [facility]. Patient and his family were informed of the risks and complications of the procedure including alternatives to surgery. These were discussed with them personally. They voice understanding and wish to proceed with the current plan of continued IV antibiotics. They understand that surgery may be necessary if continued improvement is not seen and they understand that transfer to a tertiary center may be necessary. Encouraged patient to stop smoking as it may have deleterious effects on wound healing. Code Visit Inpatient E&M: 17110 Init Hosp L2 - ICD-10 - L03.90, Q87.89, F17.200
[2018-07-20 22:15] LABS: Bedside Glucose 112 mg/dL (70-110)
[2018-07-21 02:29] VITALS: BP 112/57; PULSE 77; RESP 16; TEMP 37.3; O2SAT 95
[2018-07-21] MEDS: Piperacil/Tazobactam 3.375 GM/50 ML ML IV (05:51)
[2018-07-21 05:56] LABS: Absolute Lymphocyte Count 1.75 X10^3/ul (0.83-4.51); Absolute Neutrophil Count 4.2 X10^3/uL (2.0-7.7); Basophil# 0.01 X10^3/uL; Basophil% 0.2 % (0-1); Eosinophil# 0.01 X10^3/uL; Eosinophils% 0.2 % (0-5); Hematocrit 35.7 % (40-54); Hemoglobin 11.9 g/dl (13.0-16.5); Lymphocyte # 1.75 X10^3/ul (4.0); Lymphocyte % 26.4 % (19-41); Mean Corp Hgb Conc 33.3 g/gl (32-36); Monocyte# 0.63 X10^3/uL; Monocyte% 9.5 % (0-10); Neutrophil # 4.21 X10^3/uL (2.7-7.7); Neutrophil % 63.5 % (47-70); POSITIVE COUNT NO; POSITIVE DIFFERENTIAL NO; POSITIVE MORPHOLOGY NO; Platelet Count 161 K/mm3 (150-450); RBC Distribution Width CV 13.7 % (11.6-14.6); RBC Distribution Width SD 45.7 fl (35.1-43.9); Red Blood Count 3.84 M/mm3 (4.6-6.2); White Blood Count 6.6 K/mm3 (4.4-11.0)
[2018-07-21] MEDS: Acetaminophen 325 MG Tablet 650 MG PO (07:01)
[2018-07-21 07:35] VITALS: BP 102/59; PULSE 92; RESP 16; TEMP 37.4; O2SAT 98
[2018-07-21 07:37] VITALS: O2SAT 95
[2018-07-21] MEDS: Ibuprofen 400 MG Tablet PO (10:40)
--- NOTE | 2018-07-21 13:08 | NURSING ---
In to reassess the left hand. there is more blistering noted to the left middle finger. still redness to the left arm. pt states there is some discomfort, but not necessarily more than yesterday. family present at bedside. plan is for possible surgery later today. if Dr Groves is not able to operate today, patient will be transferred out today.
--- NOTE | 2018-07-21 13:20 | CON.PCM_ITS ---
Problem List (1) Sepsis due to cellulitis Status: Acute Reason for Consult: finger infection Consulted by: Dr. Monroe History of Present Illness: The patient is a 28 year old M with LEIA syndrome who presented 07/18 with sudden onset of LUE redness, swelling, pain. L 3rd finger was the worst. Sx associated with fever and rigors. No known trauma or other inciting events. No drainage. Came to ED, given clinda, admitted on vanc/cefazolin, then changed to unasyn 07/19. Had continued fever and worsening of finger, so 07/20 abx changed to zosyn. Fever and wbc now better. Finger now with bullae on plantar surface, severe pain to touch. Full ROS performed and neg except as noted above. - Medical History Past Medical History (Chronic Problems): Chronic Problems LEIA syndrome (Chronic) Tobacco abuse (Chronic) Allergies/Adverse Reactions: Allergies No Known Allergies Allergy (Verified 07/18/18 19:14) Home Medications: Ambulatory Orders Medication Instructions Recorded Natural Herbs 07/18/18 - Social History Tobacco Use: cigarettes Vital Signs Temp Pulse Resp BP Pulse Ox 99.4 F H 92 16 102/59 L 95 07/21/18 07:35 07/21/18 07:35 07/21/18 07:35 07/21/18 07:35 07/21/18 07:37 Oxygen Delivery Method Room Air Weight: 76.9 kg Body Mass Index (BMI) 30.0 Microbiology Past 72 Hours 07/18/18 20:00 Blood Culture - Preliminary Blood Culture (Wb) - Right Forearm No growth in 48 hours. 07/18/18 19:37 Blood Culture - Preliminary Blood Culture (Wb) - Anticubital Right No growth in 48 hours. Laboratory Tests Past 24 Hrs 07/21/18 05:30 WBC 6.6 RBC 3.84 L Hgb 11.9 L Hct 35.7 L MCV 93.0 MCH 31.0 MCHC 33.3 RDW 13.7 RDW Differential 45.7 H Plt Count 161 MPV 9.0 Immature Gran % (Auto) 0.200 Neut % (Auto) 63.5 Lymph % (Auto) 26.4 Ashley % (Auto) 9.5 Eos % (Auto) 0.2 Baso % (Auto) 0.2 Absolute Neuts (auto) 4.2 Absolute Lymphs (auto) 1.75 Total Counted Not Reportable - Other Studies Radiology: [] reviewed Other Studies: [] Route of nutrition/ use of supplements: [] Nutritional Intake: [] IV Site: [] Urena Catheter: [] - Physical Exam General: Alert, Oriented x3, Cooperative, No apparent distress HEENT: Atraumatic, PERRLA, EOMI Neck: Supple, No Nodes Lungs: Clear to auscultation, Normal air movement Cardiovascular: Regular rate, Regular Rhythm, No murmurs Abdomen: Soft, Non Tender, Non-Distended Extremities: No edema Skin: - - L 3rd finger with severe pain to touch, swelling, bullae, and redness. Surrounding hand and arm with areas of redness, mildly tender. Neurological: Cranial nerves II-XII grossly intact - Assessment/Plan Antibiotics: [] Assessment/Plan: [] Active and Suspected Problems Sepsis due to cellulitis (Acute) On zosyn, fever and wbc improved (though still temp of 102.2 overnight), but L 3rd finger worsening with high suspicion for abscess. Needs surgical debridement. MRSA nasal screen was neg, bcx remain neg. If surgery cannot be done here, will need transfer. Without any cx data from his finger, recommend vanc/cefazolin/clinda for coverage. Thank you, will follow, d/w hospitalist and plastic surgery.
--- NOTE | 2018-07-21 14:14 | DS.PCM_ITS ---
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 1. SIRS with sepsis secondary to left upper extremity cellulitis, blister with possible abscess of left third finger and second finger with left axillary lymphadenopathy: Left axillary lymphadenopathy is improving. Patient antibiotic was broadened to Zosyn from Unasyn. He recommended vancomycin and cefazolin Clinda for coverage. The patient was seen by initially was treated with IV vancomycin and clindamycin. Blood culture negative for 48 hours. MRSA nasal screen negative. He also recommended incision and drainage. Patient has left third finger and second finger swollen with blisters and possible abscess underneath it. Left second and third finger and dorsum of hand are very tender to touch. As Dr. Mishra not available for surgery, out of town, he recommended transfer to another hospital. This was discussed with the patient and her mother and wanted either [facility] or [facility]. The patient clinical course and the need of incision and drainage of finger and possible hand was discussed with Dr. Roth, [facility] and was accepted. Her mother further said he has acral cyanosis or tip of ears, nose getting or p robable old cold; probably may have Reynaud's phenomena. With continued swelling, edema, tenderness and fever left upper extremity CT with contrast was done which shows no focal fluid collection or abscess but skin thickening and subcutaneous edema over the medial aspect of left upper extremity. 2. PAD of lower extremities: As per mother he has some peripheral artery disease of lower extremities on arterial Doppler result is not available. Patient did not had angiogram or stenting.Patient has amputation of distal phalanx of left fifth finger. 3. Tobacco use: Patient was ex-smoker but now uses chewing tobacco. 4. DVT prophylaxis: Low risk. Early ambulation encouraged The patient is being transferred to [facility] for hand surgery. Microbiology Past 72 Hours 07/18/18 20:00 Blood Culture (Wb) - Right Forearm Blood Culture - Preliminary No growth in 48 hours. 07/18/18 19:37 Blood Culture (Wb) - Anticubital Right Blood Culture - Preliminary No growth in 48 hours. Laboratory Results 1 07/21/18 05:30: WBC 6.6, RBC 3.84 L, Hgb 11.9 L, Hct 35.7 L, MCV 93.0, MCH 31.0, MCHC 33.3, RDW 13.7, RDW Differential 45.7 H, Plt Count 161, MPV 9.0, Immature Gran % (Auto) 0.200, Neut % (Auto) 63.5, Lymph % (Auto) 26.4, Green % (Auto) 9.5, Eos % (Auto) 0.2, Baso % (Auto) 0.2, Absolute Neuts (auto) 4.2, Absolute Lymphs (auto) 1.75, Total Counted Not Reportable Clinical Impression(s) from Imaging Studies Hand X-Ray 07/18/18 19:40 IMPRESSION: Amputation of the distal phalanx of the left fifth finger. No acute fracture or dislocation. Upper Extremity CT 07/20/18 09:23 IMPRESSION: Skin thickening and subcutaneous edema overlying the medial aspect of the left upper extremity as described. No focal fluid collection or abscess is seen. Patient Problems: Active and Suspected Problems Sepsis due to cellulitis (Acute) Objective: General: Alert, Oriented x3, Cooperative HEENT: Atraumatic, PERRLA, EOMI, Normocephalic Neck: Supple, No JVD, Negative Carotid Bruits Lungs: Clear to auscultation, Normal air movement Cardiovascular: Regular rate, No murmurs Abdomen: Bowel Sounds Present, Soft, Non Tender Extremities: No edema, Capillary Refill Less than 3 Seconds Skin: Rash Present - Erythematous rash over left upper extremity and axilla. Musculoskeletal: No Tenderness to Palpation of Joints or Extremities, Tenderness of left upper extremity along the medial aspect with associated induration and swelling. Blister of left third and ring finger and swelling of dorsum of hand with high suspicion of abscess Lymphatic: - - Left axillary lymphadenopathy Neurological: Cranial nerves II-XII grossly intact, Deep Tendon Reflexes 2+/4 and Symmetrical, Neuro grossly intact, Motor Exam 5/5 strength throughout Psych/Mental Status: Normal Affect, Appropriate - Physical Exam Vital Signs Temp Pulse Resp BP Pulse Ox 99.4 F H 92 16 102/59 L 95 07/21/18 07:35 07/21/18 07:35 07/21/18 07:35 07/21/18 07:35 07/21/18 07:37 Oxygen Delivery Method Room Air Weight: 169 lb 8.568 oz Body Mass Index (BMI) 30.0 Intake and Output for Last 24 Hours 07/19/18 07/20/18 07/21/18 23:59 23:59 23:59 Intake Total 7214 / 7214 590 / 590 791 / 791 Output Total 4980 / 4980 550 / 550 Balance 2234 / 2234 40 / 40 791 / 791 Microbiology Past 72 Hours 07/18/18 20:00 Blood Culture - Preliminary Blood Culture (Wb) - Right Forearm No growth in 48 hours. 07/18/18 19:37 Blood Culture - Preliminary Blood Culture (Wb) - Anticubital Right No growth in 48 hours. Laboratory Tests Past 24 Hrs 07/21/18 05:30 WBC 6.6 RBC 3.84 L Hgb 11.9 L Hct 35.7 L MCV 93.0 MCH 31.0 MCHC 33.3 RDW 13.7 RDW Differential 45.7 H Plt Count 161 MPV 9.0 Immature Gran % (Auto) 0.200 Neut % (Auto) 63.5 Lymph % (Auto) 26.4 Green % (Auto) 9.5 Eos % (Auto) 0.2 Baso % (Auto) 0.2 Absolute Neuts (auto) 4.2 Absolute Lymphs (auto) 1.75 Total Counted Not Reportable POC Glucose 07/20/18 07/20/18 21:43 16:42 POC Glucose 112 H 124 H Home Medications: Medications to take at Discharge Natural Herbs 07/18/18 Primary Care Physician: Salty Watts DO [Primary Care Provider] - Medical Necessity - Tobacco Use Smoking Status: Current every day smoker Tobacco Use: Chew Meaningful Use Info Meaningful Use Diagnoses (Choose all that apply): None applicable Code Visit Inpatient E&M: 82284 Disch Hosp
[2018-07-21 14:45] VITALS: BP 100/56; PULSE 71; RESP 16; TEMP 36.6; O2SAT 99
--- NOTE | 2018-07-21 15:25 | NURSING ---
report called to Soni at [facility]. pt and family aware of transportation time and they are updating family. and mother are currently trying to find a sweeper driver to take them to [facility] behind the pt.
== END 2018-07-21 15:48 | disposition short-term general hospital (02) | DRG 872 ==
LOC: ED 19:40 → MS3 21:05
PROVIDERS: Admitting Provider Hospitalist; Emergency Provider Emergency Medicine; Family Provider Family Medicine; PCP Family Medicine; Visit Provider Internal Medicine
DX: A41.9 Sepsis, unspecified organism (principal); L03.114 Cellulitis of left upper limb; F17.220 Nicotine dependence, chewing tobacco, uncomplicated; I73.9 Peripheral vascular disease, unspecified; Q27.39 Arteriovenous malformation, other site
CPT/HCPCS: 36415; 73130; 73201; 80048; 80202; 82962; 83605; 85025; 85652; 86140; 87040; 87641; 97802; 99282; 99406; J7030; J7040; Q9967; A4216; J0295; J2405

== ENCOUNTER → 2018-12-23 | Outpatient (CLI) | payer SELFPAY, OTHER ==
--- NOTE | 2018-12-23 13:01 | CDU_ITS ---
Reason For Study: Retinal hemorrhage Rt. Velocities/BP Lt. Velocities/BP Prox CCA 163/48.9 cm/sec. Prox CCA 185/38 cm/sec. Mid CCA 156.5/33.6 cm/sec. Mid CCA 147.7/29.2 cm/sec. Dist CCA 132.3/42.4 cm/sec. Dist CCA 121.4/31.4 cm/sec. Prox ICA 152.1/371 cm/sec. Prox ICA 115.6/29.8 cm/sec. Mid ICA 141.2/35.3 cm/sec. Mid ICA 97.4/37.1 cm/sec. Dist ICA 122.9/27.9 cm/sec. Dist ICA 82.7/37.1 cm/sec. Rt. ICA/CCA = 1.0. Lt. ICA/CCA = 0.8. Prox ECA 124.7/24.3 cm/sec. Prox ECA 130.2/24.8 cm/sec. Rt. Vert. 49.1/21.2 cm/sec. Lt. Vert. 41.3/9.9 cm/sec. Right Extracranial There is intimal thickening but no significant atherosclerotic plaque noted in the right common carotid artery. There is intimal thickening but no significant atherosclerotic plaque noted in the right internal carotid artery. There is no significant atherosclerotic plaque noted in the right external carotid artery. Antegrade flow is noted in the right vertebral artery. Left Extracranial There is intimal thickening but no significant atherosclerotic plaque noted in the left common carotid artery. There is intimal thickening but no significant atherosclerotic plaque noted in the left internal carotid artery. There is no significant atherosclerotic plaque noted in the left external carotid artery. Antegrade flow is noted in the left vertebral artery. Procedure Carotid Duplex [id number]. Exam performed in department. Interpretation Summary No significant atherosclerotic plaque or stenosis noted in the internal carotid arteries bilaterally. Flow within the vertebral arteries is antegrade bilaterally. Ordering Physician: EDDIE GARCIA Referring Physician: Dano Razo M.D. Performed By: Anahy Kelly RVT
[2018-12-23 13:39] LABS: Absolute Lymphocyte Count 2.45 X10^3/ul (0.83-4.51); Absolute Neutrophil Count 1.7 X10^3/uL (2.0-7.7); Basophil# 0.01 X10^3/uL; Basophil% 0.2 % (0-1); Eosinophil# 0.06 X10^3/uL; Eosinophils% 1.3 % (0-5); Hematocrit 37.1 % (40-54); Hemoglobin 12.8 g/dl (13.0-16.5); Lymphocyte # 2.45 X10^3/ul (4.0); Lymphocyte % 54.2 % (19-41); Mean Corp Hgb Conc 34.5 g/gl (32-36); Mean Corpuscular Volume 87.1 fL (80-94); Mean Platelet Vol. 8.4 fl (6.2-12.0); Monocyte# 0.35 X10^3/uL; Monocyte% 7.7 % (0-10); Neutrophil # 1.65 X10^3/uL (2.7-7.7); Neutrophil % 36.6 % (47-70); Platelet Count 199 K/mm3 (150-450); RBC Distribution Width SD 44.2 fl (35.1-43.9); Red Blood Count 4.26 M/mm3 (4.6-6.2); White Blood Count 4.5 K/mm3 (4.4-11.0)
[2018-12-23 13:40] LABS: International Normalized Ratio 1.1; Prothrombin Time (Protime)PT. 13.8 SECONDS (11.7-14.9)
[2018-12-23 13:41] LABS: POSITIVE COUNT NO; POSITIVE DIFFERENTIAL NO; POSITIVE MORPHOLOGY NO; Partial Thromboplast Time 29.6 Seconds (24.1-36.2)
[2018-12-23 13:54] LABS: Anion Gap 6 (5-15); BUN 14 mg/dL (7-18); BUN/Creat Ratio 19.6 RATIO (10-20); Calcium,Total 8.8 mg/dL (8.5-10.1); Chloride 108 mmol/L (98-107); Creatinine, Serum 0.71 mg/dL (0.70-1.30); EST Glomerular Filtration Rate 140 mL/min (>60); Est Glom Filt Rate - Afr Amer 170 mL/min (>60); Glucose 97 mg/dL (74-106); Potassium 3.7 mmol/L (3.5-5.1); Sodium Level 141 mmol/L (136-145)
== END | disposition home or self-care (01) ==
PROVIDERS: Family Provider Family Medicine; PCP Family Medicine
DX: H35.82 Retinal ischemia (principal); H35.62 Retinal hemorrhage, left eye
CPT/HCPCS: 36415; 80048; 85025; 85610; 85730; 93880

== ENCOUNTER 2021-10-04 21:14 | Emergency (ER) | payer OTHER, SELFPAY ==
[2021-10-04 21:15] VITALS: BP 145/86; PULSE 76; RESP 16; TEMP 36.8; O2SAT 97; BMI 31.8
[2021-10-04] MEDS: Fluconazole 100 MG Tablet 200 MG PO (21:44)
[2021-10-04 21:50] LABS: Bedside Glucose 128 mg/dL (70-110)
--- NOTE | 2021-10-04 21:53 | EX.ED.GUMALE ---
HPI History of Present Illness Chief Complaint: Male Pain/Injury Detail of Chief Complaint: Bilateral inguinal rash and bleeding from scrotum Informant: patient and spouse/S.O. Pain Onset: Today and Hours Context: Gradual Onset Timing: Continuous Current Severity: Mild Maximum Severity: Moderate Worsened by: Fungal infection Relieved by: Nothing Appearance Lesion(s): Yes Genital Edema: No Related History Sexually: Active Unprotected Sex: Yes STD: No Epididymitis: No Bladder/Kidney Infection: No Enlarged Prostate: No Prostate Infection: No Prostate Cancer: No Narrative Narrative: Patient is a 31-year-old male with Leia syndrome who presents because of bleeding from his scrotum and areas of skin breakdown excoriation from yeast infection. He denies dysuria, frequency, urgency or hematuria. He denies penile discharge. Denies testicular pain or swelling. Prior similar symptoms: No Recent Illness/Hospitalization: No PFSH PFSH Home Medications Natural Herbs 07/18/18 [History Last Taken Unknown] fluconazole [Diflucan] 200 mg PO DAILY #2 tab 10/04/21 [Rx Last Taken Unknown] nystatin 1 applic TOPICAL TID #30 g 10/04/21 [Rx Last Taken Unknown] Allergy/AdvReac Type Severity Reaction Status Date / Time No Known Allergies Allergy Verified 10/04/21 21:17 Family History Brother LEIA syndrome Brother LEIA syndrome Social History (Updated 10/04/21 @ 21:[address] Chuy Wells MD) household members: spouse housing: house Smoking Status: Current every day smoker tobacco type: cigarettes substance use type: does not use ROS ROS ED Constitutional Constitutional ED: Denies chills, fever(s), subjective, sweats or weight loss Eyes Eyes: Denies blurry vision or change in vision ENT ENT ED: Denies ear pain, rhinorrhea or sore throat Gastrointestinal Gastrointestinal: Denies abdominal pain, diarrhea, nausea or vomiting Genitourinary Genitourinary ED: Reports other Details: Per HPI ; Denies dysuria, hematuria or urinary frequency Musculoskeletal Musculoskeletal: Denies arthralgias or myalgias Integumentary Reports rash and other Hematologic/Lymphatic Hematologic/Lymphatic: Denies easy bleeding or easy bruising EXAM Physical Exam Const Vital Signs: 10/04/21 21:15 Temperature 98.2 F Temperature Source Temporal Pulse Rate 76 Respiratory Rate 16 Blood Pressure 145/86 H Blood Pressure Mean 105 Pulse Ox 97 Oxygen Delivery Method Room Air Positive well nourished, well developed and obese General Appearance ED: well developed and NAD; Negative for pallor Nutritional Appearance: obese HEENT Reports moist mucous membranes atraumatic; Negative for normocephalic Eyes PERRL and EOMs intact bilaterally General Eye ED: Negative for pale conjunctiva or scleral icterus Resp normal respiratory effort and clear to auscultation bilaterally Cardio regular rate, regular rhythm, S1 normal heart sound, S2 normal heart sound and no murmurs GI non-tender and non-distended Auscultation: normoactive bowel sounds Palpation: soft no CVA tenderness Narrative: Patient is not circumcised. Testes are centered bilaterally. There is areas of excoriation scrotum with rash consistent with yeast infection as well as the inguinal area. Extremity normal to inspection Neuro oriented x3 and CN's II-XII intact bilaterally Sensorium / Orientation: alert Psych mental status grossly normal Skin Skin Narrative: Rash due to yeast infection General Skin Exam: Negative for jaundice or pallor Lesions: No no lesions Rashes: No no rashes and rashes noted MDM MDM MDM Narrative Medical decision making narrative: PGT was obtained since her family history of diabetes and has had probably dips and nocturia. Patient was treated with Diflucan and nystatin powder. Patient instructed up with For blood glucose check in 1 to 2 weeks. He was discharged with prescription for Diflucan and nystatin powder Lab Data Attestation: I reviewed the patient's lab results. 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
[2021-10-04] MEDS: Nystatin Powder 15gm Bottle 1 APPLIC TOPICAL (22:17)
== END 2021-10-04 23:04 | disposition home or self-care (01) ==
PROVIDERS: Emergency Provider Emergency Medicine; PCP Family Medicine; Visit Provider Emergency Medicine
DX: B37.2 Candidiasis of skin and nail (principal); N50.1 Vascular disorders of male genital organs; R73.9 Hyperglycemia, unspecified; F17.210 Nicotine dependence, cigarettes, uncomplicated; R21 Rash and other nonspecific skin eruption
CPT/HCPCS: 82962; 99283

== ENCOUNTER 2022-08-23 14:34 | Inpatient (IN) | payer OTHER, SELFPAY ==
[2022-08-23] VITALS (10 sets, daily range): BP systolic 107–129; BP diastolic 60–79; PULSE 101–124; RESP 16–24; TEMP 37.2–39.8; O2SAT 93–99; BMI 37.2; BMI 38.0
--- NOTE | 2022-08-23 16:00 | EX.ED.DYSGE1 ---
HPI History of Present Illness Chief Complaint: Fever Detail of Chief Complaint: fever Informant: patient and family Onset/Context/Timing Onset: Today (early this AM / overnight) Timing: Continuous Quality: subjective Current Severity: Moderate Maximum Severity: Moderate Associated Symptoms Associated Symptoms: cough, malaise, poor appetite Narrative Narrative: [facility] patient with Leia syndrome brought by family for a subjective fever that started overnight. Evaluated just before 1600. Currently has a fever of 103.6. Has been coughing for a couple days, not bringing anything up, denies any chest pain, abdominal pain, dyspnea, sore throat, earache. He has cellulitis in his right lower leg. He has been on antibiotics for somewhere around 8 weeks, he is currently on cephalexin and the last dose was this morning, family states it has continued to look better and in no way today does any of it look worse than it had been. No known exposures to anyone else recently with respiratory illness that they know of including COVID or influenza which have high prevalence in the community at this time. [facility] Medical History (Updated 08/23/22 @ 19:[address] Justino Garza MD) Brain aneurysm LEIA syndrome Tobacco abuse Home Medications NK 08/23/22 [History Last Taken Unknown] Allergy/AdvReac Type Severity Reaction Status Date / Time No Known Allergies Allergy Verified 08/23/22 14:34 Family History (Updated 08/23/22 @ 19:[address] Lorin Walton MD) Brother No problems noted. Brother LEIA syndrome Brother x 2. Surgical History (Updated 08/23/22 @ 19:[address] Lorin Walton MD) History of surgery for cerebral aneurysm S/P appendectomy Social History (Updated 10/04/21 @ 21:[address] Chuy Wells MD) household members: spouse housing: house Smoking Status: Current every day smoker tobacco type: cigarettes substance use type: does not use ROS ROS ED Constitutional Constitutional ED: Reports anorexia, chills, fever(s) and malaise Eyes Eyes: Denies change in vision or diplopia ENT ENT ED: Denies ear pain, rhinorrhea or sore throat Cardiovascular Cardiovascular: Denies chest pain or palpitations Respiratory/Chest Respiratory/Chest: Reports cough; Denies dyspnea Gastrointestinal Gastrointestinal: Denies abdominal pain, diarrhea, nausea or vomiting Genitourinary Genitourinary ED: Denies dysuria or hematuria Musculoskeletal Musculoskeletal: Reports as per HPI and extremity pain; Denies back pain or neck pain Integumentary Reports as per HPI and rash; Denies abscess Neurologic Neurologic: Denies headache(s), paresthesias or weakness Psychiatric Psychiatric: Denies anxiety or suicidal thoughts EXAM Physical Exam Const Vital Signs: 08/23/22 14:37 08/23/22 15:49 08/23/22 15:38 Temperature 98.9 F 103.6 F H 103.6 F H Temperature Source Temporal Axillary Axillary Pulse Rate 115 H 113 H Respiratory Rate 18 22 H Respiratory Effort Respiratory Pattern Blood Pressure 129/79 H 125/77 H Blood Pressure Mean 95 93 Pulse Ox 98 97 Oxygen Delivery Method Room Air Room Air 08/23/22 16:00 08/23/22 16:00 08/23/22 16:00 Temperature 103 F H Temperature Source Axillary Pulse Rate 124 H Respiratory Rate 23 H Respiratory Effort Normal Non-Labored Respiratory Pattern Normal Blood Pressure 126/74 H Blood Pressure Mean 91 Pulse Ox 98 99 Oxygen Delivery Method Room Air Room Air 08/23/22 17:00 08/23/22 17:00 08/23/22 18:00 Temperature 103 F H 103 F H Temperature Source Axillary Oral Pulse Rate 117 H 117 H 112 H Respiratory Rate 24 H 16 Respiratory Effort Respiratory Pattern Blood Pressure 122/73 H 107/60 Blood Pressure Mean 89 75 Pulse Ox 93 99 Oxygen Delivery Method Room Air Room Air 08/23/22 19:00 Temperature 102.8 F H Temperature Source Oral Pulse Rate 110 H Respiratory Rate 23 H Respiratory Effort Respiratory Pattern Blood Pressure 110/60 Blood Pressure Mean 76 Pulse Ox 95 Oxygen Delivery Method Room Air Positive well nourished and well developed Constitutional Narrative: Appear as malaised. No distress. Follows commands appropriately. Oriented accordingly. General Appearance ED: well developed and NAD HEENT Reports moist mucous membranes normocephalic and atraumatic Eyes PERRL and EOMs intact bilaterally Neck full ROM, no lymphadenopathy and supple Resp normal respiratory effort and clear to auscultation bilaterally Cardio regular rate, regular rhythm and no murmurs Rate: tachycardic GI non-tender and non-distended Auscultation: normoactive bowel sounds Palpation: soft Back/Spine no CVA tenderness General Back: other FROM Extremity Extremity Narrative: Tender erythema with healing wounds with an cellulitis right lower leg. No subcutaneous emphysema. No expressible discharge. No abscess. All compartments soft and nondistended. General Extremety ED: Yes tenderness; Negative for pulses abnormal General Extremity: Negative for pulses abnormal Neuro oriented x3, CN's II-XII intact bilaterally and no sensory deficits noted Sensorium / Orientation: awake and alert Motor Exam: strength 5/5 throughout Psych mental status grossly normal Skin skin turgor normal Skin Narrative: Cellulitis right lower leg without extension to or beyond the knee, no lymphangitis, no abscess. MDM MDM MDM Narrative Medical decision making narrative: COVID and influenza negative, chest x-ray 1 view normal on my interpretation confirmed by radiology, his blood work shows a leukocytosis of 13.6 and a strong leftward shift without bandemia, the rest of his blood work is unremarkable including a lactate within normal limits at 1.2. Liver enzymes are normal. His urine does show infection I suspect this is probably the source of his fever given that the family is saying that his right lower leg cellulitis has been improving. It does not look normal but this is the first time I have seen it. He was given Tylenol for his low-grade fever and subsequently his temperature christiano to 103 Fahrenheit. He has a mild tachycardia he was given some fluids, discussed with family and after guajardo culturing, gave him a dose of empiric Rocephin. My concern is that he could have a resistant organism since he has been on cephalexin according to family when this occurred, and the urine appears to be the source since everything else appears to be ruled out such as COVID, influenza, chest x-ray showing no pneumonia on my interpretation. Discussed with hospitalist family is comfortable with that plan and prefer to have him admitted. Lab Data Attestation: I reviewed the patient's lab results. Labs: Laboratory Results - last 24 hr 08/23/22 08/23/22 08/23/22 16:00 16:00 16:00 WBC 13.6 H RBC 4.25 L Hgb 12.6 L Hct 38.1 L MCV 89.6 MCH 29.6 MCHC 33.1 RDW Std Deviation 43.8 RDW Coeff of Talat 13.3 Plt Count 361 MPV 8.0 Immature Gran % (Auto) 1.100 H Neut % (Auto) 81.8 H Lymph % (Auto) 11.8 L Collin % (Auto) 5.2 Eos % (Auto) 0.0 Baso % (Auto) 0.1 Absolute Neuts (auto) 11.1 H Absolute Lymphs (auto) 1.61 Nucleated RBC % 0 PT 16.0 H INR 1.3 APTT 32.4 Sodium 136 Potassium 3.7 Chloride 105 Carbon Dioxide 24.0 Anion Gap 7 BUN 14 Creatinine 0.84 Estim Creat Clear Calc 102.55 Est GFR (MDRD) Af Amer 138 Est GFR (MDRD) Non-Af 114 BUN/Creatinine Ratio 16.7 Glucose 115 H Lactic Acid Calcium 9.0 Total Bilirubin 0.30 AST 29 ALT 45 Alkaline Phosphatase 63 Total Protein 8.4 H Albumin 3.2 Globulin 5.2 H Albumin/Globulin Ratio 0.6 L Urine Color Urine Clarity Urine pH Ur Specific [place] Urine Protein Urine Glucose (UA) Urine Ketones Urine Occult Blood Urine Nitrite Urine Bilirubin Urine Urobilinogen Ur Leukocyte Esterase Urine RBC Urine WBC Ur Squamous Epith Cells Urine Bacteria Urine Mucus 08/23/22 08/23/22 16:00 17:30 WBC RBC Hgb Hct MCV MCH MCHC RDW Std Deviation RDW Coeff of Talat Plt Count MPV Immature Gran % (Auto) Neut % (Auto) Lymph % (Auto) Collin % (Auto) Eos % (Auto) Baso % (Auto) Absolute Neuts (auto) Absolute Lymphs (auto) Nucleated RBC % PT INR APTT Sodium Potassium Chloride Carbon Dioxide Anion Gap BUN Creatinine Estim Creat Clear Calc Est GFR (MDRD) Af Amer Est GFR (MDRD) Non-Af BUN/Creatinine Ratio Glucose Lactic Acid 1.2 Calcium Total Bilirubin AST ALT Alkaline Phosphatase Total Protein Albumin Globulin Albumin/Globulin Ratio Urine Color Yellow Urine Clarity Clear Urine pH 7.0 Ur Specific [place] 1.010 Urine Protein 30 H Urine Glucose (UA) Normal Urine Ketones 5 H Urine Occult Blood Negative Urine Nitrite Positive H Urine Bilirubin Negative Urine Urobilinogen Normal Ur Leukocyte Esterase 500 H Urine RBC 0 SEEN Urine WBC 5-10 SEEN Ur Squamous Epith Cells 0 SEEN Urine Bacteria 1+ Urine Mucus 0 SEEN Radiography Diagnostic Testing: Clinical Impression(s) from Imaging Studies Chest X-Ray 08/23/22 16:20 IMPRESSION: No radiographic evidence of acute cardiopulmonary disease. Electronically Signed: Evan Henson MD at 17:00 EST , Rhythm Strip Rhythm Strip: Sinus Tach Rate: 115 Ectopy: None EKG Initial EKG: Attestation: I personally reviewed and interpreted this EKG as follows: Interpretation: No Acute Injury Pattern and Sinus Tachycardia (Otherwise normal EKG) Discharge Plan Triage Chief Complaint: Fever ED Provider: Justino Garza Dx/Rx/DC Orders Clinical Impression: SIRS (systemic inflammatory response syndrome), Urinary tract infection, Cellulitis of right lower leg, Failure of outpatient treatment Prescriptions: No Action NK Primary Care Provider: Salty Watts Referrals: Salty Watts DO [Primary Care Provider] - Disposition Disposition: Acute Care [facility]
--- NOTE | 2022-08-23 16:06 | NURSING ---
NO OLD EKGS
[2022-08-23 16:17] LABS: Absolute Lymphocyte Count 1.61 X10^3/uL (0.83-4.51); Absolute Neutrophil Count 11.1 X10^3/uL (2.0-7.7); Basophil# 0.02 X10^3/uL; Basophil% 0.1 % (0-1); Hematocrit 38.1 % (40-54); Hemoglobin 12.6 g/dL (13.0-16.5); Lymphocyte # 1.61 X10^3/ul (0.83-4.51); Lymphocyte % 11.8 % (19-41); Mean Corp Hgb Conc 33.1 g/dL (32-36); Mean Corpuscular Hgb 29.6 pg (27.0-32.0); Mean Corpuscular Volume 89.6 fL (80-94); Monocyte# 0.71 X10^3/uL; Monocyte% 5.2 % (0-10); NRBC Flagged by Analyzer 0 % (0-5); Neutrophil # 11.13 X10^3/uL (2.7-7.7); Neutrophil % 81.8 % (47-70); Platelet Count 361 K/mm3 (150-450); RBC Distribution Width CV 13.3 % (11.6-14.6); RBC Distribution Width SD 43.8 fl (35.1-43.9); Red Blood Count 4.25 M/mm3 (4.6-6.2); White Blood Count 13.6 K/mm3 (4.4-11.0)
--- NOTE | 2022-08-23 16:20 | RAD_ITS ---
EXAM: XR CHEST, 1 VIEW CLINICAL INDICATION: cough fever TECHNIQUE: Frontal view of the chest. This report was created using [employer] report generation technology. COMPARISON: None. FINDINGS: LUNGS AND PLEURAL SPACES: Unremarkable. No consolidation or edema. No pneumothorax. No effusion. HEART: Unremarkable. Cardiac silhouette not enlarged. MEDIASTINUM: Central airways and mediastinal contour are unremarkable. BONES/JOINTS: Unremarkable. SOFT TISSUES: Unremarkable. RAD/Chest 1 View (Portable) IMPRESSION: No radiographic evidence of acute cardiopulmonary disease. Electronically Signed: Evan Henson MD at 17:00 EST ,
[2022-08-23 16:25] LABS: International Normalized Ratio 1.3; Partial Thromboplast Time 32.4 Seconds (24.1-36.2)
[2022-08-23] MEDS: 0.9% Normal Saline 1,000 ML 999 ML IV (16:32)
[2022-08-23] MEDS: Acetaminophen 500 MG Tablet 1000 MG PO (16:32)
[2022-08-23 16:33] LABS: ALB/GLOB Ratio 0.6 RATIO (0.9-2.4); AST(SGOT) 29 U/L (15-37); Alanine Aminotransfer ALT/SGPT 45 U/L (16-61); Albumin, Serum 3.2 g/dL (3.2-5.0); Alkaline Phosphatase 63 U/L (45-117); Anion Gap 7 (5-15); BUN 14 mg/dL (7-18); BUN/Creat Ratio 16.7 RATIO (10-20); Chloride 105 mmol/L (98-107); Creatinine, Serum 0.84 mg/dL (0.70-1.30); EST Glomerular Filtration Rate 114 mL/min (>60); Est Glom Filt Rate - Afr Amer 138 mL/min (>60); Estimated Creatinine Clearance 102.55 ml/min; Globulin 5.2 g/dL (2.2-4.2); Glucose 115 mg/dL (74-106); Potassium 3.7 mmol/L (3.5-5.1); Protein, Total 8.4 g/dL (6.4-8.2); Sodium Level 136 mmol/L (136-145)
[2022-08-23 16:46] LABS: Lactic Acid 1.2 mmol/L (0.4-1.9)
[2022-08-23 17:34] LABS: Mucous, Urine 0 SEEN /hpf (<or=2+); Red Blood Cells-Urine 0 SEEN /hpf (0-5); Squamous Epithelial Cells - UA 0 SEEN /hpf (0-5)
[2022-08-23 17:36] LABS: Color, Urine Yellow (Yellow); Glucose, Dipstick Normal (Normal); Ketone-Dipstick 5 mg/dl (Negative); Leukocyte Esterase-Dipstick 500 /ul (Negative); Nitrite-Dipstick Positive (Negative); Occult Blood-Urine Negative /ul (Negative); Protein-Dipstick 30 mg/dl (Negative); Urine Bilirubin Dipstick Negative (Negative); Urine Clarity Clear (Clear); Urine Urobilinogen Normal (Normal)
[2022-08-23 17:54] LABS: Bacteria 1+ /hpf (None Seen); White Blood Cells 5-10 SEEN /hpf (0-5)
[2022-08-23] MEDS: Ceftriaxone 1 GM/50 ML BAG IV (18:19)
--- NOTE | 2022-08-23 19:16 | HP.PCM.HOS_ITS ---
HPI - General General Date of Admission: 08/23/22 Date of Service: 08/23/22 Chief Complaint: Cough, fever. 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, Tobacco use who presents to the [facility] ED on 08/23/22 with history of subjective fever starting overnight noted to be significantly elevated upon initial ED presentation with ongoing nonproductive cough for the last 2 to 3 days with right lower extremity redness, discomfort and edema reportedly placed on antibiotics serially over the last 8 weeks most recently with Keflex with last dose morning on day of presentation reporting that it has continued to look improved and does not appear worsened with no r ecent COVID or influenza ill contacts however given not improving prompted ED evaluation. Patient does not have any specific urinary syndrome but poor historian. Patient and family do not recall the initial reason for the right lower extremity swelling/infection including any recent bite or scratch minnie at the onset. He has been through several antibiotic therapies. They report doing wound care but unfortunately patient is rather disheveled and foul-smelling therefore low suspicion for accurate right lower extremity care. Work-up in the ED included T-max 103.6, heart rate 113, BP 125/77, respiratory rate 22, 97% room air, CBC with WBC 13.6, hemoglobin 12.6, MCV 89.6, platelet 361 with left shift, coags with PT 16 otherwise unremarkable, CMP with glucose 115 otherwise not marked appearing, lactic acid 1.2, urinalysis with specific gravity 1.010, protein 30, ketone 5, positive nitrite, leukocyte Estrace 500, urine RBCs 0, urine WBCs of 5-10, 1+ urine bacteria, chest x-ray with no acute cardiopulmonary findings, blood culture x2 pending per ED, urine culture pending per ED, rapid SARS COVID and influenza antigen negative. In the ED patient ministered normal saline 1 L x 1 as well as Tylenol 1000 mg p.o. x1 and Rocephin 1 g x 1. [facility] Medical History (Updated 08/23/22 @ 21:10 by Mar [place]) Brain aneurysm LEIA syndrome TIA (transient ischemic attack) Tobacco abuse Home Medications NK 08/23/22 [History Last Taken Unknown] Allergy/AdvReac Type Severity Reaction Status Date / Time No Known Allergies Allergy Verified 08/23/22 14:34 Family History (Updated 08/23/22 @ 22:[address] Lorin Walton MD) Brother No problems noted. Brother LEIA syndrome Brother x 2. Father Heart disease Myocardial infarction other (No marked maternal family history including HD, DM, CA.) Surgical History (Updated 08/23/22 @ 19:[address] Lorin Walton MD) History of surgery for cerebral aneurysm S/P appendectomy Social History (Updated 08/23/22 @ 22:[address] Lorin Walton MD) household members: spouse housing: house Smoking Status: Former smoker how long ago did patient quit smoking: Quit chew and cigarette tobacco 4 years prior to current presentation. alcohol intake: current alcohol intake frequency: holidays/special occasions only substance use type: does not use ROS ROS Narrative Admission Review of Systems: CONSTITUTIONAL: No weight loss, + fever, weakness or fatigue. HEENT: + LEIA syndrome with ongoing chronic issues with craniofacial/auditory Eyes: No visual loss, blurred vision, double vision or yellow sclerae. Ears, Nose, Throat: No hearing loss, sneezing, congestion, runny nose or sore throat. SKIN: + Significant right lower extremity erythema, skin sloughing, serous drainage. CARDIOVASCULAR: No chest pain, chest pressure or chest discomfort, palpitations, edema, orthopnea, syncopal events. RESPIRATORY: No shortness of breath, cough or sputum, wheezing, hemoptysis. GASTROINTESTINAL: No anorexia, nausea, vomiting or diarrhea, abdominal pain, melena, BRBPR. GENITOURINARY: No dysuria, frequency, urgency or retention. NEUROLOGICAL: No headache, dizziness, syncope, paralysis, ataxia, numbness or tingling in the extremities, focal weakness, change in bowel or bladder control, seizure. MUSCULOSKELETAL: + muscle, back pain, joint pain or stiffness. + LEIA with shortened stature. HEMATOLOGIC: No anemia, bleeding or bruising. LYMPHATICS: No enlarged nodes. No history of splenectomy. PSYCHIATRIC: No history of depression or anxiety. ENDOCRINOLOGIC: No reports of sweating, cold or heat intolerance. No polyuria or polydipsia. ALLERGIES: No history of asthma, hives, eczema or rhinitis. Vital Signs Vital Signs Vital Signs: 08/23/22 14:37 08/23/22 15:49 08/23/22 15:38 Temperature 98.9 F 103.6 F H 103.6 F H Temperature Source Temporal Axillary Axillary Pulse Rate 115 H 113 H Respiratory Rate 18 22 H Respiratory Effort Respiratory Pattern Blood Pressure 129/79 H 125/77 H Blood Pressure Mean 95 93 Pulse Ox 98 97 Oxygen Delivery Method Room Air Room Air 08/23/22 16:00 08/23/22 16:00 08/23/22 16:00 Temperature 103 F H Temperature Source Axillary Pulse Rate 124 H Respiratory Rate 23 H Respiratory Effort Normal Non-Labored Respiratory Pattern Normal Blood Pressure 126/74 H Blood Pressure Mean 91 Pulse Ox 98 99 Oxygen Delivery Method Room Air Room Air 08/23/22 17:00 08/23/22 17:00 08/23/22 18:00 Temperature 103 F H 103 F H Temperature Source Axillary Oral Pulse Rate 117 H 117 H 112 H Respiratory Rate 24 H 16 Respiratory Effort Respiratory Pattern Blood Pressure 122/73 H 107/60 Blood Pressure Mean 89 75 Pulse Ox 93 99 Oxygen Delivery Method Room Air Room Air 08/23/22 19:00 Temperature 102.8 F H Temperature Source Oral Pulse Rate 110 H Respiratory Rate 23 H Respiratory Effort Respiratory Pattern Blood Pressure 110/60 Blood Pressure Mean 76 Pulse Ox 95 Oxygen Delivery Method Room Air Weight Weight: 210 lb Body Mass Index (BMI) 37.2 Physical Exam Narrative Physical Examination: General: Awake, alert, oriented x 3 and cooperative, seated upright in the ED bed, fatigued appearing, disheveled and in general unkempt and mildly foul- smelling. Skin: Normal color, normal turgor, no icterus, no cyanosis except for poor skin care folds as well as significant right lower extremity erythema extending up easily up to the proximal knee circumferentially with sloughing to the posterior calf region suspected in part secondary to frequent stasis, serous drainage, venous stasis skin changes. HEENT: AT/NC, EOMI, PERRLA, mildly dry MM, no carotid bruits or JVD noted, LEIA related craniofacial changes. Lungs: Mild diminished, greater bases, appropriate effort, no rales, ronchi or wheezing. Heart: Mildly tachycardic with regular rhythm; no gallop, rub audible. Abdomen: Soft, obese, NTTP, ND, mildly hyperactive BS, no HSM. Extremities: No cyanosis, no clubbing, pedal to mid olea pitting edema associated with skin findings as noted Neurological: Patient awake, alert, oriented as noted, patient does have some chronic underlying debilities associated with LEIA syndrome, cognitive function currently appears baseline intact; pupils equally reactive to light and accommodation, cranial nerves grossly normal, moving all 4 extremities, no focal deficits, strength moderately global decrease secondary to acute presentation Psychiatric: Affect appears flat, fatigued, ill-appearing, no acute evidence of depressive or anxiety feelings. Results Lab / Micro Data Result Diagrams: 08/23/22 16:00 08/23/22 16:00 Labs: Laboratory Results - last 24 hr 08/23/22 16:00: WBC 13.6 H, RBC 4.25 L, Hgb 12.6 L, Hct 38.1 L, MCV 89.6, MCH 29.6, MCHC 33.1, RDW Std Deviation 43.8, RDW Coeff of [place] 13.3, Plt Count 361, MPV 8.0, Immature Gran % (Auto) 1.100 H, Neut % (Auto) 81.8 H, Lymph % (Auto) 11.8 L, [place] % (Auto) 5.2, Eos % (Auto) 0.0, Baso % (Auto) 0.1, Absolute Neuts (auto) 11.1 H, Absolute Lymphs (auto) 1.61, Nucleated RBC % 0 08/23/22 16:00: PT 16.0 H, INR 1.3, APTT 32.4 08/23/22 16:00: Sodium 136, Potassium 3.7, Chloride 105, Carbon Dioxide 24.0, Anion Gap 7, BUN 14, Creatinine 0.84, Estim Creat Clear Calc 102.55, Est GFR (MDRD) Af Amer 138, Est GFR (MDRD) Non-Af 114, BUN/Creatinine Ratio 16.7, Glucose 115 H, Calcium 9.0, Total Bilirubin 0.30, AST 29, ALT 45, Alkaline Phosphatase 63, Total Protein 8.4 H, Albumin 3.2, Globulin 5.2 H, Albumin/Globulin Ratio 0.6 L 08/23/22 16:00: Lactic Acid 1.2 08/23/22 17:30: Urine Color Yellow, Urine Clarity Clear, Urine pH 7.0, Ur Specific [place] 1.010, Urine Protein 30 H, Urine Glucose (UA) Normal, Urine Ketones 5 H, Urine Occult Blood Negative, Urine Nitrite Positive H, Urine Bilirubin Negative, Urine Urobilinogen Normal, Ur Leukocyte Esterase 500 H, Urine RBC 0 SEEN, Urine WBC 5-10 SEEN, Ur Squamous Epith Cells 0 SEEN, Urine Bacteria 1+, Urine Mucus 0 SEEN Micro: Microbiology 08/23/22 16:30 Nasal Secretion SARS-CoV-2 & FLU Antigen (Rapid) - Final Rhythm Strip Rhythm Strip: Sinus Tach Rate: 115 Ectopy: None Radiology Impression Chest X-Ray 08/23/22 16:20 IMPRESSION: No radiographic evidence of acute cardiopulmonary disease. 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, Tobacco use who presents to the [facility] ED on 08/23/22 with history of subjective fever starting overnight noted to be significantly elevated upon initial ED presentation with ongoing nonproductive cough for the last 2 to 3 days with right lower extremity redness, discomfort and edema reportedly placed on antibiotics serially over the last 8 weeks most recently with Keflex with last dose morning on day of presentation reporting that it has continued to look improved and does not appear worsened with no recent COVID or influenza ill contacts however given not improving prompted ED evaluation. #1. RLE Cellulitis, poor appearing, infected appearance with SIRS, consider failued outpatient abx therapy: Patient with ongoing outpatient treatment specifically on Keflex, given presentation as noted will admit to [facility] telemetry, will maintain on IV Rocephin initiated in the ED and hold patient's Keflex pending Wound culture/Wound MRSA culture, to be cautious will obtain duplex ult rasound, plan repeat CBC in AM, continue affected extremity elevation above heart when seated and in bed, monitor erythema outline with VS checks, will request Wound RN consultation as could benefit from notable wound care. If not improving may need to consider transition to Vancomycin or if Wound MRSA +. #2. Possible Acute Urinary Tract Infection with SIRS, also concurrent #1: Will admit to medical surgical floor, UA upon ED evaluation remarkable, pending UCx, continue IVFs, monitor I/Os, continue IV Rocephin w/ transition as able pending sensitivities and speciation. #3. Possible Concurrent Acute Viral Syndrome: Initial ED evaluation with negative COVID and influenza testing in the ED. Given recent viral complaints to be cautious we will also obtain full respiratory viral panel, continue supportive, judicious IV fluids as noted, encourage head of bed and I-S. #4. LEIA Syndrome: Patient with history of Gregg syndrome with short stature, auditory canal atresia, mandibular hypoplasia and skeletal abnormalities with associated brain aneurysm status post 2 aneurysmal clipping, encourage continued close outpatient follow-up. #5. Former Tobacco Abuse: Encouraged continued cessation. #6. Obesity: Weight loss and lifestyle changes encouraged. #7. DVT prophylaxis: SCDs, Lovenox. Charges/Coding Visit Charges Inpatient E&M: 45345 Init Hosp L3
[2022-08-23] MEDS: oxyCODONE 5 MG Tablet PO (21:59)
[2022-08-23] MEDS: Acetaminophen 325 MG Tablet 650 MG PO (21:59)
[2022-08-23] MEDS: 0.9% Normal Saline 1,000 ML 125 ML IV (22:01)
[2022-08-23 23:07] LABS: M R Staph aureus DNA By PCR Negative (Negative); Probe Check PASS; Specimen Processing Control PASS; Staph aureus DNA By PCR POSITIVE (Negative)
[2022-08-24] VITALS (12 sets, daily range): BP systolic 129–135; BP diastolic 59–74; PULSE 82–110; RESP 14–18; TEMP 36.8–39.1; O2SAT 94–95
[2022-08-24] MEDS: 0.9% Normal Saline 1,000 ML 125 ML IV ×3 (04:07→23:03)
[2022-08-24] MEDS: oxyCODONE 5 MG Tablet PO ×5 (04:09→23:02)
[2022-08-24] MEDS: Acetaminophen 325 MG Tablet 650 MG PO ×2 (04:09→18:39)
[2022-08-24 06:09] LABS: Absolute Lymphocyte Count 2.03 X10^3/uL (0.83-4.51); Basophil# 0.02 X10^3/uL; Basophil% 0.2 % (0-1); Hematocrit 31.9 % (40-54); Hemoglobin 10.2 g/dL (13.0-16.5); Lymphocyte # 2.03 X10^3/ul (0.83-4.51); Lymphocyte % 18.1 % (19-41); Mean Corpuscular Hgb 29.6 pg (27.0-32.0); Mean Corpuscular Volume 92.5 fL (80-94); Mean Platelet Vol. 8.3 fl (6.2-12.0); Monocyte# 1.16 X10^3/uL; Monocyte% 10.3 % (0-10); NRBC Flagged by Analyzer 0.2 % (0-5); Neutrophil # 7.96 X10^3/uL (2.7-7.7); Neutrophil % 70.8 % (47-70); Platelet Count 295 K/mm3 (150-450); RBC Distribution Width SD 47.5 fl (35.1-43.9); Red Blood Count 3.45 M/mm3 (4.6-6.2); White Blood Count 11.2 K/mm3 (4.4-11.0)
[2022-08-24 06:35] LABS: ALB/GLOB Ratio 0.6 RATIO (0.9-2.4); AST(SGOT) 21 U/L (15-37); Alanine Aminotransfer ALT/SGPT 36 U/L (16-61); Albumin, Serum 2.5 g/dL (3.2-5.0); Alkaline Phosphatase 48 U/L (45-117); Anion Gap 5 (5-15); BUN 11 mg/dL (7-18); BUN/Creat Ratio 17.1 RATIO (10-20); Calcium,Total 8.2 mg/dL (8.5-10.1); Chloride 109 mmol/L (98-107); Creatinine, Serum 0.64 mg/dL (0.70-1.30); EST Glomerular Filtration Rate 154 mL/min (>60); Est Glom Filt Rate - Afr Amer 187 mL/min (>60); Estimated Creatinine Clearance 134.59 ml/min; Globulin 4.2 g/dL (2.2-4.2); Glucose 113 mg/dL (74-106); Potassium 3.4 mmol/L (3.5-5.1); Protein, Total 6.7 g/dL (6.4-8.2); Sodium Level 139 mmol/L (136-145)
--- NOTE | 2022-08-24 08:04 | PN.HOSP_ITS ---
Subjective Subjective Patient is a 32-year-old gentleman with history of sinus syndrome presented to the emergency department with progressive generalized weakness fever as well as redness involving the right lower extremity. An assessment of right lower extremity cellulitis made admitted to regular nursing floor for further management Objective Data Objective Data Vital Signs: Vital Signs Temp Pulse Resp BP Pulse Ox O2 Del Method 99.4 F H 82 18 135/74 H 95 Room Air 08/24/22 04:02 08/24/22 07:07 08/24/22 04:02 08/24/22 04:02 08/24/22 04:02 08/24/22 04:02 Oxygen Delivery Method Room Air Weight: 99.3 kg Body Mass Index (BMI) 38.0 Intake & Output: Intake and Output for Last 24 Hours 08/22/22 08/23/22 08/24/22 23:59 23:59 23:59 Intake Total 1550 / 1550 762.5 / 762.5 Balance 1550 / 1550 762.5 / 762.5 Lab / Micro Data Result Diagrams: 08/24/22 05:18 08/24/22 05:18 Labs: Laboratory Results - last 24 hr 08/23/22 16:00: WBC 13.6 H, RBC 4.25 L, Hgb 12.6 L, Hct 38.1 L, MCV 89.6, MCH 29.6, MCHC 33.1, RDW Std Deviation 43.8, RDW Coeff of Talat 13.3, Plt Count 361, MPV 8.0, Immature Gran % (Auto) 1.100 H, Neut % (Auto) 81.8 H, Lymph % (Auto) 11.8 L, [place] % (Auto) 5.2, Eos % (Auto) 0.0, Baso % (Auto) 0.1, Absolute Neuts (auto) 11.1 H, Absolute Lymphs (auto) 1.61, Nucleated RBC % 0 08/23/22 16:00: PT 16.0 H, INR 1.3, APTT 32.4 08/23/22 16:00: Sodium 136, Potassium 3.7, Chloride 105, Carbon Dioxide 24.0, Anion Gap 7, BUN 14, Creatinine 0.84, Estim Creat Clear Calc 102.55, Est GFR (MDRD) Af Amer 138, Est GFR (MDRD) Non-Af 114, BUN/Creatinine Ratio 16.7, Glucose 115 H, Calcium 9.0, Total Bilirubin 0.30, AST 29, ALT 45, Alkaline Phosphatase 63, Total Protein 8.4 H, Albumin 3.2, Globulin 5.2 H, Albumin/Globulin Ratio 0.6 L 08/23/22 16:00: Lactic Acid 1.2 08/23/22 17:30: Urine Color Yellow, Urine Clarity Clear, Urine pH 7.0, Ur Specif ic [place] 1.010, Urine Protein 30 H, Urine Glucose (UA) Normal, Urine Ketones 5 H, Urine Occult Blood Negative, Urine Nitrite Positive H, Urine Bilirubin Negative, Urine Urobilinogen Normal, Ur Leukocyte Esterase 500 H, Urine RBC 0 SEEN, Urine WBC 5-10 SEEN, Ur Squamous Epith Cells 0 SEEN, Urine Bacteria 1+, Urine Mucus 0 SEEN 08/23/22 21:40: S.aureus Protein A PCR POSITIVE H, MRSA (PCR) Negative 08/24/22 05:18: WBC 11.2 H, RBC 3.45 L, Hgb 10.2 L, Hct 31.9 L, MCV 92.5, MCH 29.6, MCHC 32.0, RDW Std Deviation 47.5 H, RDW Coeff of [place]at 14.0, Plt Count 295, MPV 8.3, Immature Gran % (Auto) 0.600, Neut % (Auto) 70.8 H, Lymph % (Auto) 18.1 L, [place] % (Auto) 10.3 H, Eos % (Auto) 0.0, Baso % (Auto) 0.2, Absolute Neuts (auto) 8.0 H, Absolute Lymphs (auto) 2.03, Nucleated RBC % 0.2 08/24/22 05:18: Sodium 139, Potassium 3.4 L, Chloride 109 H, Carbon Dioxide 25.0, Anion Gap 5, BUN 11, Creatinine 0.64 L, Estim Creat Clear Calc 134.59, Est GFR (MDRD) Af Amer 187, Est GFR (MDRD) Non-Af 154, BUN/Creatinine Ratio 17.1, Glucose 113 H, Calcium 8.2 L, Total Bilirubin 0.30, AST 21, ALT 36, Alkaline P hosphatase 48, Total Protein 6.7, Albumin 2.5 L, Globulin 4.2, Albumin/Globulin Ratio 0.6 L Micro: Microbiology 08/23/22 22:53 Mucosa - Nasopharyngeal Respiratory Panel (PCR) - Final 08/23/22 21:23 Urine, Clean Catch Legionella Antigen - Final 08/23/22 21:23 Urine, Clean Catch Streptococcus pneumoniae Antigen (M - Final 08/23/22 16:30 Nasal Secretion SARS-CoV-2 & FLU Antigen (Rapid) - Final Radiography Diagnostic Testing: Radiology Impression Chest X-Ray 08/23/22 16:20 IMPRESSION: No radiographic evidence of acute cardiopulmonary disease. Electronically Signed: Evan Henson MD at 17:00 EST , Rhythm Strip Rhythm Strip: Sinus Tach Rate: 115 Ectopy: None Physical Exam Narrative GENERAL: cooperative HEENT: Atraumatic; normocephalic EYES; Anicteric, Normal Conjunctiva NECK; supple, normal thyroid, RESPIRATORY: Diminished to auscultation CARDIOVASCULAR: Regular S1 S2, GI: soft, normoactive bowel sounds, : No Renal angle tenderness; EXTREMITIES: An area of erythema involving the anterior surface of the right tibia MUSCULOSKELETAL: no muscle wasting NEURO: Awake; no lateralizing signs. SKIN: As described above PSYCH; Flat affect Assessment & Plan Assessment/Plan (1) UTI (urinary tract infection): PLAN: Plan Patient is a 32-year-old gentleman with history of LEIA Syndrome presented to the emergency department with progressive generalized weakness fever as well as redness involving the right lower extremity. An assessment of right lower extremity cellulitis made admitted to regular nursing floor for further management 1. Right lower extremity cellulitis ? Admitted to regular nursing floor started on Rocephin as well as vancomycin with consultation placed to wound care nurse. Patient apparently failed outpatient treatment with Keflex 2. Acute cystitis ? Patient is on Rocephin we will follow-up on culture result 3. LEIA Syndrome (a Syndrome of Short Stature, Auditory-Canal Atresia, Mandibular Hypoplasia, and Skeletal Abnormalities?) ? Supportive care 4. Class II obesity with BMI of 38.8 ? Weight loss advised 5. DVT prophylaxis ? SC Lovenox Charges/Coding Visit Charges Inpatient E&M: 19053 Subs Hosp L2
--- NOTE | 2022-08-24 09:09 | VDLE_ITS ---
Reason For Study: LEG PAIN RIGHT LEFT GSV is normal. CFV is compressible, spontaneous, phasic, CFV is compressible, spontaneous, phasic, competent, and demonstrates normal competent and demonstrates normal augmentation. augmentation. FV is compressible, spontaneous, phasic, competent and demonstrates normal augmentation. POP V is compressible, spontaneous, phasic, competent and demonstrates normal augmentation. T/P Trunk is compressible. PTV is compressible. RT PerV is compressible. Enlarged Lymph Nodes noted in Rt Groin measuring approximately 0.87cm x 1.26cm and 0.95cm x 1.15cm. Calf vessels visualized in segments due to open wounds. Procedure This is a venous duplex using B-mode, color flow and spectral Doppler. Exam performed portable in patient room. The exam was diagnostic. A preliminary report was called and/or faxed to M/S 3 Nurse responsible for patient. VL/Venous Duplex US, Unilateral Interpretation Summary There is no evidence of right lower extremity deep vein thrombosis. Right great saphenous vein appears patent and compressible segmentally. Lymph nodes right groin 0.87 x 1.2 6cm and 0.95 x 1.15cm Normal flow patterns left common femoral vein Open wounds right leg preclude complete venous inspection Ordering Physician: Lorin Walton Referring Physician: Salty Watts Performed By: Tico Fong RVT
[2022-08-24] MEDS: Enoxaparin 40 MG/0.4 ML Syringe SC (09:26)
[2022-08-24] MEDS: Potassium Chloride Oral Tablet 20 MEQ PO (17:06)
[2022-08-24] MEDS: Ceftriaxone 1 GM/50 ML BAG IV (22:22)
[2022-08-25] VITALS (13 sets, daily range): BP systolic 111–128; BP diastolic 70–84; PULSE 83–97; RESP 14–18; TEMP 36.3–37.5; O2SAT 94–98
[2022-08-25 06:26] LABS: Absolute Neutrophil Count 5.4 X10^3/uL (2.0-7.7); Basophil# 0.03 X10^3/uL; Basophil% 0.3 % (0-1); Eosinophil# 0.02 X10^3/uL; Eosinophils% 0.2 % (0-5); Hematocrit 30.6 % (40-54); Hemoglobin 9.5 g/dL (13.0-16.5); Lymphocyte % 24.1 % (19-41); Mean Corpuscular Hgb 29.1 pg (27.0-32.0); Mean Corpuscular Volume 93.9 fL (80-94); Monocyte# 1.14 X10^3/uL; Monocyte% 13.1 % (0-10); NRBC Flagged by Analyzer 0 % (0-5); Neutrophil # 5.38 X10^3/uL (2.7-7.7); Neutrophil % 61.7 % (47-70); Platelet Count 275 K/mm3 (150-450); RBC Distribution Width SD 47.4 fl (35.1-43.9); Red Blood Count 3.26 M/mm3 (4.6-6.2); White Blood Count 8.7 K/mm3 (4.4-11.0)
[2022-08-25] MEDS: oxyCODONE 5 MG Tablet PO ×3 (06:47→19:52)
[2022-08-25] MEDS: 0.9% Normal Saline 1,000 ML 125 ML IV (06:48)
[2022-08-25 07:05] LABS: Anion Gap 6 (5-15); BUN 7 mg/dL (7-18); BUN/Creat Ratio 11.4 RATIO (10-20); Calcium,Total 8.7 mg/dL (8.5-10.1); Chloride 106 mmol/L (98-107); Creatinine, Serum 0.62 mg/dL (0.70-1.30); EST Glomerular Filtration Rate 162 mL/min (>60); Est Glom Filt Rate - Afr Amer 196 mL/min (>60); Estimated Creatinine Clearance 138.94 ml/min; Glucose 92 mg/dL (74-106); Magnesium 2.1 mg/dL (1.6-2.6); Phosphorus 3.1 mg/dL (2.5-4.9); Potassium 3.7 mmol/L (3.5-5.1); Sodium Level 138 mmol/L (136-145)
[2022-08-25] MEDS: Potassium Chloride Oral Tablet 20 MEQ PO ×2 (08:02→17:03)
--- NOTE | 2022-08-25 08:40 | PCM.PN.HOSP ---
Objective Data Objective Data Vital Signs: Vital Signs Temp Pulse Resp BP Pulse Ox O2 Del Method 99.5 F H 87 18 128/70 H 98 Room Air 08/25/22 08:00 08/25/22 08:00 08/25/22 08:00 08/25/22 08:00 08/25/22 08:00 08/25/22 08:00 Oxygen Delivery Method Room Air Weight: 99.8 kg Body Mass Index (BMI) 38.0 Intake & Output: Intake and Output for Last 24 Hours 08/23/22 08/24/22 08/25/22 23:59 23:59 23:59 Intake Total 1550 / 1550 3712.5 / 3712.5 968.75 / 968.75 Balance 1550 / 1550 3712.5 / 3712.5 968.75 / 968.75 Lab / Micro Data Result Diagrams: 08/25/22 05:56 08/25/22 05:56 Labs: Laboratory Results - last 24 hr 08/25/22 05:56: WBC 8.7, RBC 3.26 L, Hgb 9.5 L, Hct 30.6 L, MCV 93.9, MCH 29.1, MCHC 31.0 L, RDW Std Deviation 47.4 H, RDW Coeff of [place] 14.0, Plt Count 275, MPV 8.0, Immature Gran % (Auto) 0.600, Neut % (Auto) 61.7, Lymph % (Auto) 24.1, [place] % (Auto) 13.1 H, Eos % (Auto) 0.2, Baso % (Auto) 0.3, Absolute Neuts (auto) 5.4, Absolute Lymphs (auto) 2.10, Nucleated RBC % 0 08/25/22 05:56: Sodium 138, Potassium 3.7, Chloride 106, Carbon Dioxide 26.0, Anion Gap 6, BUN 7, Creatinine 0.62 L, Estim Creat Clear Calc 138.94, Est GFR (MDRD) Af Amer 196, Est GFR (MDRD) Non-Af 162, BUN/Creatinine Ratio 11.4, Glucose 92, Calcium 8.7, Phosphorus 3.1, Magnesium 2.1 Micro: Microbiology 08/23/22 17:30 Urine, Clean Catch Urine Culture - Final Culture exhibits no growth. 08/23/22 22:53 Mucosa - Nasopharyngeal Respiratory Panel (PCR) - Final 08/23/22 21:23 Urine, Clean Catch Legionella Antigen - Final 08/23/22 21:23 Urine, Clean Catch Streptococcus pneumoniae Antigen (M - Final 08/23/22 16:30 Nasal Secretion SARS-CoV-2 & FLU Antigen (Rapid) - Final Rhythm Strip Rhythm Strip: Sinus Tach Rate: 115 Ectopy: None Physical Exam Narrative GENERAL: cooperative HEENT: Atraumatic; normocephalic EYES; Anicteric, Normal Conjunctiva NECK; supple, normal thyroid, RESPIRATORY: Diminished to auscultation CARDIOVASCULAR: Regular S1 S2, GI: soft, normoactive bowel sounds, : No Renal angle tenderness; EXTREMITIES: An area of erythema involving the anterior surface of the right tibia MUSCULOSKELETAL: no muscle wasting NEURO: Awake; no lateralizing signs. SKIN: As described above PSYCH; Flat affect Assessment & Plan Assessment/Plan (1) UTI (urinary tract infection): PLAN: Plan Patient is a 32-year-old gentleman with history of LEIA Syndrome presented to the emergency department with progressive generalized weakness fever as well as redness involving the right lower extremity. An assessment of right lower extremity cellulitis made admitted to regular nursing floor for further management 1. Right lower extremity cellulitis ? Admitted to regular nursing floor started on Rocephin as well as vancomycin with consultation placed to wound care nurse. Patient apparently failed outpatient treatment with Keflex -08/25/2022; patient appears to be responding to treatment. Afebrile without leukocytosis cultures pending 2. Acute cystitis ? Patient is on Rocephin we will follow-up on culture result 3. LEIA Syndrome (a Syndrome of Short Stature, Auditory-Canal Atresia, Mandibular Hypoplasia, and Skeletal Abnormalities?) ? Supportive care 4. Class II obesity with BMI of 38.8 ? Weight loss advised 5. DVT prophylaxis ? SC Lovenox Charges/Coding Visit Charges Inpatient E&M: 42096 Subs Hosp L2
[2022-08-25] MEDS: Morphine 2 MG/ML Syringe IV (11:30)
[2022-08-25] MEDS: Enoxaparin 40 MG/0.4 ML Syringe SC (11:31)
--- NOTE | 2022-08-25 13:09 | CT_ITS ---
CT of the right leg with contrast INDICATION: Cellulitis, heel pain. TECHNIQUE: Multiple thin section axial CT images of the right leg were obtained after the ministration of intravenous contrast and filmed in soft tissue and bone windows. Furthermore, multiple sagittal and coronal reconstructions were performed. Dose limiting techniques were utilized. FINDINGS: Diffuse skin thickening with some edema in the subcutaneous fat consistent with cellulitis or passive congestion. No loculated fluid collection to suggest abscess. Normal appearance to the muscular compartments of the leg. No acute fracture or dislocation. No lytic or blastic lesions. No bone destruction to suggest osteomyelitis. CT/Extremity Lower WITH Contrast IMPRESSION: Suspect cellulitis but no abscess or osteomyelitis. Electronically Signed: Troy Nur MD at 16:12 EST ,
[2022-08-25] MEDS: Ceftriaxone 1 GM/50 ML BAG IV (21:35)
[2022-08-25] MEDS: 0.9% Saline Lock 10 ML Syringe IV (21:36)
[2022-08-26] VITALS (10 sets, daily range): BP systolic 109–127; BP diastolic 62–85; PULSE 83–93; RESP 16–18; TEMP 36.6–37; O2SAT 93–98
[2022-08-26] MEDS: oxyCODONE 5 MG Tablet PO ×5 (01:52→21:40)
[2022-08-26 06:50] LABS: Absolute Lymphocyte Count 1.88 X10^3/uL (0.83-4.51); Absolute Neutrophil Count 4.5 X10^3/uL (2.0-7.7); Basophil# 0.03 X10^3/uL; Basophil% 0.4 % (0-1); Eosinophil# 0.02 X10^3/uL; Eosinophils% 0.3 % (0-5); Lymphocyte # 1.88 X10^3/ul (0.83-4.51); Lymphocyte % 27.1 % (19-41); Mean Corp Hgb Conc 32.4 g/dL (32-36); Mean Corpuscular Hgb 29.7 pg (27.0-32.0); Mean Corpuscular Volume 91.9 fL (80-94); Mean Platelet Vol. 8.3 fl (6.2-12.0); Monocyte# 0.46 X10^3/uL; Monocyte% 6.6 % (0-10); NRBC Flagged by Analyzer 0 % (0-5); Neutrophil # 4.52 X10^3/uL (2.7-7.7); Platelet Count 304 K/mm3 (150-450); RBC Distribution Width CV 13.9 % (11.6-14.6)
[2022-08-26 07:06] LABS: Anion Gap 6 (5-15); BUN 7 mg/dL (7-18); BUN/Creat Ratio 12.6 RATIO (10-20); Calcium,Total 9.4 mg/dL (8.5-10.1); Chloride 105 mmol/L (98-107); Creatinine, Serum 0.56 mg/dL (0.70-1.30); EST Glomerular Filtration Rate 183 mL/min (>60); Est Glom Filt Rate - Afr Amer 221 mL/min (>60); Estimated Creatinine Clearance 153.82 ml/min; Glucose 95 mg/dL (74-106); Potassium 3.9 mmol/L (3.5-5.1); Sodium Level 137 mmol/L (136-145)
[2022-08-26] MEDS: Potassium Chloride Oral Tablet 20 MEQ PO ×2 (07:46→16:16)
[2022-08-26] MEDS: Enoxaparin 40 MG/0.4 ML Syringe SC (07:46)
--- NOTE | 2022-08-26 09:43 | WOUNDNOTE ---
wound photo: right lower leg
--- NOTE | 2022-08-26 09:45 | WOUNDNOTE ---
wound photo: right posterior lower leg
--- NOTE | 2022-08-26 09:45 | WOUNDNOTE ---
wound photo: right posterior lower leg
--- NOTE | 2022-08-26 14:00 | CASEMGMT ---
FRED MARTINEZ DELI WORKER CM to room to meet with patient for initial transition planning/care coordination assessment. RN JUAN introduced self and role at [facility].? Pt voices understanding and consents to assessment at this time.? Pt resting in bed in no distress at this time.? and son @ bedside. Pt is A/O at this time and answers all questions appropriately.?? Care providers, pharmacy, and demographics verified/updated at this time. PCP: Dr Watts Specialists: none Preferred Pharmacy: [facility] retail Insurance: AA Prescription Benefit:? none. Pt states he will be paying w/[employer] and he is pretty sure he will have enough to pay for new rx's [place]. RN JUAN informed him to notify CM if he does not. LNOK: , Monica Living Arrangements: Lives w/ and 2 sons in 2-story home w/2-3 steps to enter. Bedroom is upstairs and pt states he does well w/the stairs. No toilets in the home. They use an outhouse. Transportation: Hire drivers DME: ? Denies using any DME and denies needs.? HHC/SNF: No hx of either. Pt denies need for HHC at this time, stating his assists him w/wound care/dsg changes daily. states she is comfortable continuing to do them when pt returns home. Pt wishes to return home and states has no concerns with going home at time of discharge.? CM to follow for any discharge planning/needs.? Pt and voice no further concerns/needs at this time.? Advised them to ask for CM if any further questions/concerns/needs arise.? Voices understanding. PLAN: ?Home w/spousal support and discharge plans in place. Lexi BOWMAN RN, CM
--- NOTE | 2022-08-26 19:53 | PN.HOSP_ITS ---
Subjective Subjective Patient was seen and examined today, I talked with the wound care nurse who feels that the patient does have some superficial tissue that needs to be removed but the patient is having pain in the legs when she tries to remove the tissue so she states that she will try again tomorrow to see if she can debride some of the tissue. I told the patient I would medicate him before she does this but he would not be asleep as he requested. Patient understands this, patient's family was in the room when I talked with the patient today. Patient's white blood cell count today is 7, he is afebrile. Patient's CAT scan does not show evidence of an abscess in the right leg. Objective Data Objective Data Vital Signs: Vital Signs Temp Pulse Resp BP Pulse Ox O2 Del Method 97.8 F 89 18 109/62 97 Room Air 08/26/22 16:03 08/26/22 16:03 08/26/22 16:03 08/26/22 16:03 08/26/22 16:03 08/26/22 16:03 Oxygen Delivery Method Room Air Weight: 96.8 kg Body Mass Index (BMI) 38.0 Intake & Output: Intake and Output for Last 24 Hours 08/24/22 08/25/22 08/26/22 23:59 23:59 23:59 Intake Total 3712.5 / 3712.5 2818.75 / 2818.75 0 / 0 Balance 3712.5 / 3712.5 2818.75 / 2818.75 0 / 0 Lab / Micro Data Result Diagrams: 08/27/22 05:15 08/27/22 05:15 Labs: Laboratory Results - last 24 hr 08/26/22 05:35: WBC 7.0, RBC 3.70 L, Hgb 11.0 L, Hct 34.0 L, MCV 91.9, MCH 29.7, MCHC 32.4, RDW Std Deviation 47.0 H, RDW Coeff of Talat 13.9, Plt Count 304, MPV 8.3, Immature Gran % (Auto) 0.600, Neut % (Auto) 65.0, Lymph % (Auto) 27.1, [place] % (Auto) 6.6, Eos % (Auto) 0.3, Baso % (Auto) 0.4, Absolute Neuts (auto) 4.5, Absolute Lymphs (auto) 1.88, Nucleated RBC % 0 08/26/22 05:35: Sodium 137, Potassium 3.9, Chloride 105, Carbon Dioxide 26.0, Anion Gap 6, BUN 7, Creatinine 0.56 L, Estim Creat Clear Calc 153.82, Est GFR (MDRD) Af Amer 221, Est GFR (MDRD) Non-Af 183, BUN/Creatinine Ratio 12.6, Glucose 95, Calcium 9.4 Micro: Microbiology 08/24/22 11:15 Wound - Other Gram Stain - Final 08/24/22 11:15 Wound - Other Wound Culture - Preliminary Escherichia coli Staphylococcus species Streptococcus group C 08/23/22 17:30 Urine, Clean Catch Urine Culture - Final Culture exhibits no growth. 08/23/22 22:53 Mucosa - Nasopharyngeal Respiratory Panel (PCR) - Final 08/23/22 21:23 Urine, Clean Catch Legionella Antigen - Final 08/23/22 21:23 Urine, Clean Catch Streptococcus pneumoniae Antigen (M - Final 08/23/22 16:30 Nasal Secretion SARS-CoV-2 & FLU Antigen (Rapid) - Final Rhythm Strip Rhythm Strip: Sinus Tach Rate: 115 Ectopy: None Physical Exam Const alert, oriented x3, no apparent distress and healthy appearing General Appearance: cooperative, well kempt and well developed Orientation / Consciousness: awake, oriented to person, oriented to place and oriented to time HEENT normocephalic, head/scalp atraumatic and moist oral mucous membranes Eyes PERRL, EOMs intact bilaterally and conjunctivae normal Neck supple, no JVD, thyroid normal and no carotid bruits General: trachea midline Resp normal respiratory effort, no retractions, no use of accessory muscles and clear to auscultation bilaterally Auscultation: Negative for rales, rhonchi or wheezes Cardio regular rate, regular rhythm, no murmurs, no rub and no gallops GI normal to inspection, nondistended, normoactive bowel sounds, soft to palpation, non-tender and non-distended Extremity Extremity Narrative: Right leg is wrapped with surgical dressing, this was not removed for examination of the patient's right leg Skin no rashes or lesions noted General Skin Exam: no breakdown Neuro oriented x3, CN's II-XII intact bilaterally, no focal motor deficits and no sens ory deficits noted Sensorium / Orientation: awake and alert Speech: speech normal Psych affect normal Assessment & Plan Assessment/Plan (1) Cellulitis of right lower leg: PLAN: Plan 1. Cellulitis of the right lower leg-failed outpatient treatment, due to E. coli, staph aureus, and Streptococcus group C-patient will remain on his current antibiotics Cystitis was ruled out Charges/Coding Visit Charges Inpatient E&M: 87572 Subs Hosp L2
[2022-08-26] MEDS: Ceftriaxone 1 GM/50 ML BAG IV (21:40)
[2022-08-26] MEDS: Acetaminophen 325 MG Tablet 650 MG PO (21:41)
[2022-08-27 02:04] VITALS: BP 133/90; PULSE 82; RESP 16; TEMP 36.8; O2SAT 98
[2022-08-27] MEDS: oxyCODONE 5 MG Tablet PO ×5 (02:49→21:41)
[2022-08-27] MEDS: Acetaminophen 325 MG Tablet 650 MG PO ×4 (02:49→21:41)
[2022-08-27 05:36] LABS: Absolute Lymphocyte Count 1.87 X10^3/uL (0.83-4.51); Absolute Neutrophil Count 4.2 X10^3/uL (2.0-7.7); Basophil# 0.04 X10^3/uL; Basophil% 0.6 % (0-1); Eosinophil# 0.05 X10^3/uL; Eosinophils% 0.8 % (0-5); Hematocrit 35.4 % (40-54); Hemoglobin 11.5 g/dL (13.0-16.5); Lymphocyte # 1.87 X10^3/ul (0.83-4.51); Lymphocyte % 28.2 % (19-41); Mean Corp Hgb Conc 32.5 g/dL (32-36); Mean Corpuscular Hgb 30.3 pg (27.0-32.0); Mean Corpuscular Volume 93.4 fL (80-94); Mean Platelet Vol. 8.1 fl (6.2-12.0); Monocyte# 0.42 X10^3/uL; Monocyte% 6.3 % (0-10); NRBC Flagged by Analyzer 0 % (0-5); Neutrophil % 63.2 % (47-70); Platelet Count 305 K/mm3 (150-450); RBC Distribution Width CV 13.9 % (11.6-14.6); RBC Distribution Width SD 47.2 fl (35.1-43.9); Red Blood Count 3.79 M/mm3 (4.6-6.2); White Blood Count 6.6 K/mm3 (4.4-11.0)
[2022-08-27 05:59] LABS: Anion Gap 4 (5-15); BUN 13 mg/dL (7-18); BUN/Creat Ratio 20.2 RATIO (10-20); Calcium,Total 9.7 mg/dL (8.5-10.1); Chloride 104 mmol/L (98-107); Creatinine, Serum 0.64 mg/dL (0.70-1.30); EST Glomerular Filtration Rate 154 mL/min (>60); Est Glom Filt Rate - Afr Amer 186 mL/min (>60); Estimated Creatinine Clearance 134.59 ml/min; Glucose 108 mg/dL (74-106); Potassium 4.4 mmol/L (3.5-5.1); Sodium Level 137 mmol/L (136-145)
[2022-08-27] MEDS: Enoxaparin 40 MG/0.4 ML Syringe SC (07:52)
[2022-08-27] MEDS: Potassium Chloride Oral Tablet 20 MEQ PO ×2 (07:53→17:47)
[2022-08-27 08:04] VITALS: BP 123/76; PULSE 79; RESP 18; TEMP 36.6; O2SAT 95
[2022-08-27 09:21] VITALS: BP 123/76; PULSE 79; RESP 18; TEMP 36.6; O2SAT 95
--- NOTE | 2022-08-27 10:21 | NURSING ---
Emergency documentation
[2022-08-27] MEDS: LORazepam 2 MG/ML Syringe IV (11:09)
[2022-08-27] MEDS: Morphine 4 MG/ML Syringe 6 MG IV (11:09)
[2022-08-27] MEDS: 0.9% Saline Lock 10 ML Syringe IV (11:46)
[2022-08-27] MEDS: Ondansetron 4 MG/2 ML Vial IV (11:46)
[2022-08-27] MEDS: Mag Hydrox/Al Hydrox/Simeth 30 ML UDC PO (12:37)
[2022-08-27 14:00] VITALS: BP 108/70; PULSE 83; RESP 18; TEMP 36.8; O2SAT 93
[2022-08-27 14:04] VITALS: BP 108/70; PULSE 83; RESP 18; TEMP 36.8; O2SAT 93
--- NOTE | 2022-08-27 19:19 | PN.HOSP_ITS ---
Subjective Subjective Patient was seen and examined today, I medicated the patient today before he underwent debridement of some tissue on his right leg by the wound care nurse. Patient tolerated this well. Patient's white blood cell count has remained normal. Objective Data Objective Data Vital Signs: Vital Signs Temp Pulse Resp BP Pulse Ox O2 Del Method 98.3 F 83 18 108/70 93 Room Air 08/27/22 14:04 08/27/22 14:04 08/27/22 14:04 08/27/22 14:04 08/27/22 14:04 08/27/22 14:04 Oxygen Delivery Method Room Air Weight: 96.5 kg Body Mass Index (BMI) 38.0 Intake & Output: Intake and Output for Last 24 Hours 08/25/22 08/26/22 08/27/22 23:59 23:59 23:59 Intake Total 2818.75 / 2818.75 50 / 50 800 / 800 Output Total 500 / 500 Balance 2818.75 / 2818.75 50 / 50 300 / 300 Lab / Micro Data Result Diagrams: 08/27/22 05:15 08/27/22 05:15 Labs: Laboratory Results - last 24 hr 08/27/22 05:15: WBC 6.6, RBC 3.79 L, Hgb 11.5 L, Hct 35.4 L, MCV 93.4, MCH 30.3, MCHC 32.5, RDW Std Deviation 47.2 H, RDW Coeff of [place] 13.9, Plt Count 305, MPV 8.1, Immature Gran % (Auto) 0.900, Neut % (Auto) 63.2, Lymph % (Auto) 28.2, [place] % (Auto) 6.3, Eos % (Auto) 0.8, Baso % (Auto) 0.6, Absolute Neuts (auto) 4.2, Absolute Lymphs (auto) 1.87, Nucleated RBC % 0 08/27/22 05:15: Sodium 137, Potassium 4.4, Chloride 104, Carbon Dioxide 29.0, Anion Gap 4 L, BUN 13, Creatinine 0.64 L, Estim Creat Clear Calc 134.59, Est GFR (MDRD) Af Amer 186, Est GFR (MDRD) Non-Af 154, BUN/Creatinine Ratio 20.2 H, Glucose 108 H, Calcium 9.7 Micro: Microbiology 08/23/22 21:25 Urine, Clean Catch Urine Culture - Final Culture exhibits no growth. 08/24/22 11:15 Wound - Other Gram Stain - Final 08/24/22 11:15 Wound - Other Wound Culture - Final Escherichia coli Staphylococcus aureus Streptococcus group C 08/23/22 17:53 Blood Culture (Wb) - Anticubital Left Blood Culture - Preliminary No growth in 48 hours. 08/23/22 16:00 Blood Culture (Wb) - Anticubital Left Blood Culture - Preliminary No growth in 48 hours. 08/23/22 17:30 Urine, Clean Catch Urine Culture - Final Culture exhibits no growth. 08/23/22 22:53 Mucosa - Nasopharyngeal Respiratory Panel (PCR) - Final 08/23/22 21:23 Urine, Clean Catch Legionella Antigen - Final 08/23/22 21:23 Urine, Clean Catch Streptococcus pneumoniae Antigen (M - Final 08/23/22 16:30 Nasal Secretion SARS-CoV-2 & FLU Antigen (Rapid) - Final Rhythm Strip Rhythm Strip: Sinus Tach Rate: 115 Ectopy: None Physical Exam Const alert, oriented x3 and no apparent distress General Appearance: cooperative, well kempt and well developed Orientation / Consciousness: awake, oriented to person, oriented to place and o riented to time HEENT normocephalic, head/scalp atraumatic and moist oral mucous membranes Eyes PERRL, EOMs intact bilaterally and conjunctivae normal Neck supple, no JVD, thyroid normal and no carotid bruits General: trachea midline Resp normal respiratory effort, no retractions, no use of accessory muscles and clear to auscultation bilaterally Auscultation: Negative for rales, rhonchi or wheezes Cardio regular rate, regular rhythm, no murmurs, no rub and no gallops GI normal to inspection, nondistended, normoactive bowel sounds, soft to palpation, non-tender and non-distended Extremity Extremity Narrative: Right leg was not examined due to presence of surgical wrapping around the leg Skin Skin Narrative: Patient's right leg was not examined due to presence of surgical gauze and wrapping of the leg Neuro oriented x3, CN's II-XII intact bilaterally, no focal motor deficits and no sensory deficits noted Sensorium / Orientation: awake and alert Speech: speech normal Psych affect normal Assessment & Plan Assessment/Plan (1) Cellulitis of right lower leg: PLAN: Plan 1. Cellulitis of the right lower leg-failed outpatient treatment, due to E. coli, staph aureus, and Streptococcus group C-patient will remain on his current antibiotics Cystitis was ruled out Charges/Coding Visit Charges Inpatient E&M: 03182 Subs Hosp L2
[2022-08-27] MEDS: Ceftriaxone 1 GM/50 ML BAG IV (21:41)
[2022-08-27 21:45] VITALS: BP 121/99; PULSE 86; RESP 16; TEMP 36.6; O2SAT 98
[2022-08-28] MEDS: Acetaminophen 325 MG Tablet 650 MG PO (03:11)
[2022-08-28] MEDS: oxyCODONE 5 MG Tablet PO ×3 (03:11→14:35)
[2022-08-28 03:14] VITALS: BP 127/87; PULSE 83; RESP 16; TEMP 36.8; O2SAT 97
[2022-08-28 07:29] VITALS: BP 98/58; PULSE 86; RESP 16; TEMP 36.7; O2SAT 96
[2022-08-28] MEDS: Potassium Chloride Oral Tablet 20 MEQ PO (07:34)
[2022-08-28] MEDS: Enoxaparin 40 MG/0.4 ML Syringe SC (10:22)
[2022-08-28] MEDS: Morphine 4 MG/ML Syringe IV (10:38)
[2022-08-28] MEDS: LORazepam 2 MG/ML Syringe 3 MG IV (10:39)
[2022-08-28] MEDS: 0.9% Saline Lock 10 ML Syringe IV (10:39)
[2022-08-28 11:15] VITALS: BP 125/70; PULSE 93; RESP 16; TEMP 36.7; O2SAT 96
--- NOTE | 2022-08-28 12:01 | WOUNDNOTE ---
wound photo: right lower leg
--- NOTE | 2022-08-28 12:01 | WOUNDNOTE ---
wound photo: right posterior lower leg
--- NOTE | 2022-08-28 12:10 | DCINST_ITS ---
Discharge Instructions Diet Discharge Diet: No restrictions Activity Discharge Activity: Return to Normal Activity Weight Bearing Status: Full weight bearing Follow Up Care Test Results: Test results from this visit will be discussed in further detail at your follow- up appointment, if applicable. Discharge Plan Admission Admit Date/Time: 08/23/22 19:17 Primary Reason for Your Visit: cellulitis of right leg Attending Provider: Zurdo West Primary Care Provider: Salty Watts Consulting Providers: Lorin Walton ; Roman Jones Instructions Additional Instructions / Restrictions: Wash right leg with soap and water daily starting tomorrow, then apply B&W ointment to your wound areas and wrapped with a dressing-do this daily Discharge Orders/Prescriptions Prescriptions: New cefdinir 300 mg capsule 600 mg PO DAILY Qty: 6 0RF Rx Instructions: start on 08/29/22 Referrals / Follow Up: Salty Watts DO [Primary Care Provider] - In 1 Week Disposition Disposition (needs filled in before D/C Order can be placed): Home, Self Care
--- NOTE | 2022-08-28 12:21 | DS.PCM_ITS ---
Providers Date of Admission: 08/23/22 Date of Discharge: 08/28/22 Primary Care Physician: Dr. 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 Cellulitis of the right lower leg with E. coli, staph aureus, and Streptococcus group C-failed outpatient treatment Acute cystitis was ruled out Medications at Discharge Home Medications cefdinir 300 mg capsule 600 mg PO DAILY #6 caps 08/28/22 hydrocodone-acetaminophen 5-325mg 5mg-325mg 1 tab PO UD PRN pain 5 days #30 tabs 08/28/22 Hospital Course Operations None Procedures None Summary of Care Provided Minutes Spent on Discharge: 31 Hospital Course: This 32-year-old white male was brought into the emergency room at [facility] for evaluation of fever, he had been treated for right leg cellulitis over the last 8 weeks, he was currently on Keflex. Work-up in the emergency room revealed an elevated white blood cell count at 13.6, chemistry profile was unremarkable, urinalysis revealed 5-10 WBCs and +1 bacteria. Examination of the patient's right lower leg revealed reddened areas and areas of superficial tissue. Patient was admitted to [place] [address], he was started on IV antibiotics, he was seen in consultation by wound care nurse who performed debridement over the patient's hospital stay-patient had to be medicated for pain due to hyperacuity of areas on his right lower leg. Patient did well during his hospitalization, cultures of the leg grew out E. coli, staph aureus, and group C strep. On 08/28/2022, patient was seen and examined: On examination he appeared in good health and spirits. Vital signs as documented. Skin warm and dry, patient's right lower leg was not examined due to presence of surgical gauze and Adaptic wrapping of the leg. Neck without JVD, neck was supple, trachea midline, thyroid was normal. Lungs clear bilaterally, normal air movement was noted. Heart exam notable for regular rhythm, normal sounds and absence of murmurs, rubs or gallops. Abdomen unremarkable and without evidence of organomegaly, masses, or abdominal aortic enlargement. Bowel sounds are present, abdomen is not distended. Extremities nonedematous, no cyanosis was noted, no clubbing was noted. Neuro: Cranial nerves II through XII are grossly intact, no focal motor deficits were noted, sensation to light touch and pinprick intact, motor exam 5/5 throughout. Psych: Patient is alert and oriented x3, he does not appear anxious or depressed, he does not appear agitated. On 08/28/2022, patient was discharged home in stable condition Weight / BMI Weight Weight: 95.3 kg Body Mass Index (BMI) 38.0 ABG / Lab / Microbiology Data Result Diagrams: 08/27/22 05:15 08/27/22 05:15 Microbiology: Microbiology 08/23/22 21:25 Urine, Clean Catch Urine Culture - Final Culture exhibits no growth. 08/24/22 11:15 Wound - Other Gram Stain - Final 08/24/22 11:15 Wound - Other Wound Culture - Final Escherichia coli Staphylococcus aureus Streptococcus group C 08/23/22 17:53 Blood Culture (Wb) - Anticubital Left Blood Culture - Preliminary No growth in 48 hours. 08/23/22 16:00 Blood Culture (Wb) - Anticubital Left Blood Culture - Preliminary No growth in 48 hours. 08/23/22 17:30 Urine, Clean Catch Urine Culture - Final Culture exhibits no growth. 08/23/22 22:53 Mucosa - Nasopharyngeal Respiratory Panel (PCR) - Final 08/23/22 21:23 Urine, Clean Catch Legionella Antigen - Final 08/23/22 21:23 Urine, Clean Catch Streptococcus pneumoniae Antigen (M - Final 08/23/22 16:30 Nasal Secretion SARS-CoV-2 & FLU Antigen (Rapid) - Final D/C Instructions Discharge Diet: No restrictions Weight Bearing Status: Full weight bearing Meaningful Use Info Meaningful Use Diagnoses (Choose all that apply): None applicable Discharge Plan Admission Admit Date/Time: 08/23/22 19:17 Primary Reason for Your Visit: cellulitis of right leg Attending Provider: Zurdo West Primary Care Provider: Salty Watts Consulting Providers: Lorin Walton ; Roman Jones Instructions Additional Instructions / Restrictions: Wash right leg with soap and water daily starting tomorrow, then apply B&W ointment to your wound areas and wrapped with a dressing-do this daily Discharge Orders/Prescriptions Prescriptions: New cefdinir 300 mg capsule 600 mg PO DAILY Qty: 6 0RF Rx Instructions: start on 08/29/22 hydrocodone-acetaminophen 5-325 mg tablet 1 tab PO UD PRN (Reason: pain) 5 Days Qty: 30 0RF Rx Instructions: one or two tablets every six hours as needed for pain Referrals / Follow Up: Salty Watts DO [Primary Care Provider] - In 1 Week Disposition Disposition (needs filled in before D/C Order can be placed): Home, Self Care Charges/Coding Visit Charges Inpatient E&M: 66616 Disch Hosp
--- NOTE | 2022-08-28 13:08 | CASEMGMT ---
RN CM into pt room, pt talking on phone. Once pt finished pt denies any homegoing needs. He states him and his will perform dressing changes. He does request meds be delivered to the room. TC to [facility], spoke with Kat, who is aware. Pt is asking what time he should tell his family to come pick him up, notified pt nurse of this question.
[2022-08-28 14:46] VITALS: BP 120/81; PULSE 87; RESP 16; TEMP 36.8; O2SAT 95
== END 2022-08-28 16:24 | disposition home or self-care (01) | DRG 603 ==
LOC: ED 19:18 → MS3 08-24 07:05
PROVIDERS: Internal Medicine; Admitting Provider Family Medicine; Emergency Provider Emergency Medicine; PCP Family Medicine; Visit Provider Internal Medicine
DX: L03.115 Cellulitis of right lower limb (principal); Q87.19 Other congenital malformation syndromes predominantly associated with short stature; N30.00 Acute cystitis without hematuria; B95.4 Other streptococcus as the cause of diseases classified elsewhere; B96.20 Unspecified Escherichia coli [E. coli] as the cause of diseases classified elsewhere; B95.62 Methicillin resistant Staphylococcus aureus infection as the cause of diseases classified elsewhere; E66.9 Obesity, unspecified; Z68.38 Body mass index [BMI] 38.0-38.9, adult; Z87.891 Personal history of nicotine dependence
CPT/HCPCS: 36415; 71045; 73701; 80048; 80053; 81001; 83605; 83735; 84100; 85025; 85610; 85730; 87040; 87070; 87077; 87086; 87186; 87205; 87428; 87449; 87633; 87640; 93005; 93971; 99285; J7030; J7040; Q9967; A4216; J2405